=== PATIENT | female | born 1945 | race Caucasian/White ===

== ENCOUNTER → 2017-12-03 | Outpatient (CLI) | payer MEDICARE, OTHER ==
[~2017-12-03] MED LIST: ASPI81CH PO; Benicar40 MG PO; ESCI10 PO; GABA300 PO; Humalog100 UNIT/3 SQ; INSLI75/25 SC; INVOKANA300 MG PO; Indapamide2.5 MG PO; MEDR5 PO; METF500C PO; Nitrostat0.4 MG SL; OLME5TAB; ROSU5 PO
== END ==
LOC: LAB EV 10:10
DX: E11.65 Type 2 diabetes mellitus with hyperglycemia (principal)
CPT/HCPCS: 82043

== ENCOUNTER 2018-06-11 12:33 | Day surgery (SDC) | payer MEDICARE, OTHER ==
[~2018-06-11] VITALS: Ht 157.5 cm; Wt 118.3 kg
[~2018-06-11 12:33] MED LIST changes: -GABA300 PO; -METF500C PO
[2018-06-11] MEDS ORDERED: METF500C PO (13:12)
[2018-06-11] MEDS ORDERED: GABA300 PO (13:13)
== END 2018-06-11 14:25 | disposition home or self-care (01) ==
LOC: ORSCSDS 12:33
PROVIDERS: Anesthesiology
PROC: 3E0R33Z Introduction of Anti-inflammatory into Spinal Canal, Percutaneous Approach (ICD-10-PCS; principal; 2018-06-11 13:45)
DX: M51.16 Intervertebral disc disorders with radiculopathy, lumbar region (principal); E11.9 Type 2 diabetes mellitus without complications; I10 Essential (primary) hypertension; E78.00 Pure hypercholesterolemia, unspecified; G47.33 Obstructive sleep apnea (adult) (pediatric); Z95.0 Presence of cardiac pacemaker; E66.01 Morbid (severe) obesity due to excess calories; Z68.42 Body mass index [BMI] 45.0-49.9, adult; Z79.82 Long term (current) use of aspirin; Z79.4 Long term (current) use of insulin; Z79.899 Other long term (current) drug therapy
CPT/HCPCS: 82947; J1040; J2001

== ENCOUNTER 2018-10-29 09:30 | Day surgery (SDC) | payer MEDICARE, OTHER ==
[~2018-10-29] VITALS: Ht 157.5 cm; Wt 117.9 kg
[~2018-10-29 09:30] MED LIST changes: +GABA300 PO; +METF500C PO
--- NOTE | 2018-10-29 10:22 | NUR ---
10/29/18 1022 Margarita Marquez PT IS RECLINING IN THE CHAIR, STATES WHEN SHE IS LIKE THIS SHE DOESN'T HAVE ANY PAIN. WHEN SHE IS UP AND WALKING IT IS A DULL ACHE AND WHEN SHE IS USING THE STAIRS IT IS A SHARP,JARRING PAIN.
[2018-10-29] MEDS ORDERED: ROSU10TA PO (13:05)
[2018-10-29] MEDS ORDERED: ESCI20 PO (13:05)
[2018-10-29] MEDS ORDERED: Indapamide1.25 MG PO (13:06)
[2018-10-29] MEDS ORDERED: INSULANPEN SC (13:07)
[2018-10-29] MEDS ORDERED: Humalog Mi100 UNIT/4 SC (13:09)
== END 2018-10-29 11:05 | disposition home or self-care (01) ==
LOC: ORSCSDS 09:30
PROVIDERS: Anesthesiology
PROC: 3E0R33Z Introduction of Anti-inflammatory into Spinal Canal, Percutaneous Approach (ICD-10-PCS; principal; 2018-10-29 10:45)
DX: M51.16 Intervertebral disc disorders with radiculopathy, lumbar region (principal); M48.061 Spinal stenosis, lumbar region without neurogenic claudication; E11.9 Type 2 diabetes mellitus without complications; I10 Essential (primary) hypertension; E78.00 Pure hypercholesterolemia, unspecified; E66.01 Morbid (severe) obesity due to excess calories; Z68.42 Body mass index [BMI] 45.0-49.9, adult; Z79.82 Long term (current) use of aspirin; Z79.84 Long term (current) use of oral hypoglycemic drugs; Z79.4 Long term (current) use of insulin; Z79.899 Other long term (current) drug therapy
CPT/HCPCS: J1040

== ENCOUNTER 2018-11-07 10:49 | Day surgery (SDC) | payer MEDICARE, OTHER ==
[~2018-11-07] VITALS: Ht 157.5 cm; Wt 114.3 kg
[~2018-11-07 10:49] MED LIST changes: +ESCI20 PO; +Humalog Mi100 UNIT/4 SC; +INSULANPEN SC; +Indapamide1.25 MG PO; +ROSU10TA PO
[2018-11-07] MEDS ORDERED: IRBE75 (11:51)
--- NOTE | 2018-11-07 11:53 | NUR ---
11/07/18 1153 Iona Maher FIRST IV ATTEMPT IN RIGHT HAND AND SECOND ATTEMPT IN RIGHT AC WERE UNSUCCESSFUL. BOTH BY ORSC.RCL THIRD ATTEMPT IN RIGHT AC BY ORSC.KLS WAS SUCCESSFUL AND TOLERATED WELL.
== END 2018-11-07 14:56 | disposition home or self-care (01) ==
LOC: ORSCSDS 10:49
PROVIDERS: Student in an Organized Health Care Education/Training Program
PROC: 0DBK8ZX Excision of Ascending Colon, Via Natural or Artificial Opening Endoscopic, Diagnostic (ICD-10-PCS; principal; 2018-11-07 12:00)
DX: Z12.11 Encounter for screening for malignant neoplasm of colon (principal); D12.2 Benign neoplasm of ascending colon; E78.5 Hyperlipidemia, unspecified; E11.9 Type 2 diabetes mellitus without complications; I25.10 Atherosclerotic heart disease of native coronary artery without angina pectoris; G47.33 Obstructive sleep apnea (adult) (pediatric); E66.01 Morbid (severe) obesity due to excess calories; I10 Essential (primary) hypertension; Z88.5 Allergy status to narcotic agent; Z88.8 Allergy status to other drugs, medicaments and biological substances; N28.9 Disorder of kidney and ureter, unspecified; F32.9 Major depressive disorder, single episode, unspecified; Z68.42 Body mass index [BMI] 45.0-49.9, adult; Z79.899 Other long term (current) drug therapy; Z79.4 Long term (current) use of insulin; Z79.82 Long term (current) use of aspirin
CPT/HCPCS: 82947; 88305; J7120

== ENCOUNTER 2022-03-03 06:22 | Day surgery (SDC) | payer MEDICARE, OTHER ==
[~2022-03-03] VITALS: Ht 160 cm; Wt 121.0 kg
[~2022-03-03 06:22] MED LIST changes: +FURO20 PO; +IRBE75; +METO25ER PO; +TELM40 PO; +TOUJEO MAX300 UNIT/2 SC; +TRULICITY4.5 MG/0.5 SC
[2022-03-03] MEDS ORDERED: TELM40 PO (08:00)
--- NOTE | 2022-03-03 11:20 | NUR ---
PATIENT RETURNED FROM THE CATHLAB S/P GENERATOR CHANGE OUT FOR PPM. PATIENT AWAKE. NO PAIN. PATIENT PLACED ON THE MONIOR AND SBAR RECEIVED FROM EDILMA SEXTON. VVS. GLUCOSE CHECKED. AND PATIENT TAKING HER OWN HOME MEDS. OK'D BY MD. TAPIA SERVED BREAKFAST TRAY.
--- NOTE | 2022-03-03 12:48 | NUR ---
[facility] STARTED AND PATIENT CALLED FOR HER RIDE TO MEET HER IN 30 MINUTES AT THE [place] ENTRANCE. STARTED TO REVIEWED DISCHARGE INSTRUCTIONS WITH THE PATIENT. SHE HAS A FOLLOW UP APPOINTMENT FOR A WOUND CHECK AND A PACEMAKER CLINIC APPOINTMENT. ALL BELONGINGS AT THE BEDSIDE.
--- NOTE | 2022-03-03 13:04 | NUR ---
PATIENT PIV REMOVED, CATH TIP INTACT AND PRESSURE DRESSING APPLIED. PATIENT UP OOB, OFF THE MONITOR. PATEINT DRESSING SELF WITH LIMITED ASSISTANCE. ALL BELONINGS GATHERED AND PAITENT TAKEN VIA WHEELCHAIR TO THE [place] ENTRANCE TO MEET RIDE.
== END 2022-03-03 13:39 | disposition home or self-care (01) ==
LOC: MHTC 06:22
DX: Z45.010 Encounter for checking and testing of cardiac pacemaker pulse generator [battery] (principal); I49.5 Sick sinus syndrome; I25.10 Atherosclerotic heart disease of native coronary artery without angina pectoris; E78.5 Hyperlipidemia, unspecified; G47.33 Obstructive sleep apnea (adult) (pediatric); I12.9 Hypertensive chronic kidney disease with stage 1 through stage 4 chronic kidney disease, or unspecified chronic kidney disease; E11.22 Type 2 diabetes mellitus with diabetic chronic kidney disease; N18.9 Chronic kidney disease, unspecified; F32.A Depression, unspecified; G89.29 Other chronic pain; M54.50 Low back pain, unspecified; M48.00 Spinal stenosis, site unspecified; Z95.5 Presence of coronary angioplasty implant and graft; Z79.899 Other long term (current) drug therapy; E66.9 Obesity, unspecified; Z68.42 Body mass index [BMI] 45.0-49.9, adult
CPT/HCPCS: 33228; 82947; 99152; 99153; C1781; C1785; J0690; J1644; J2250; J3010; J7030; J7040

== ENCOUNTER 2022-07-14 09:59 | Emergency (ER) | payer MEDICARE, OTHER ==
[~2022-07-14] VITALS: Ht 160 cm; Wt 120.7 kg
[2022-07-14] MEDS ORDERED: ALBU90OI INH (13:28)
[2022-07-14] MEDS ORDERED: DOXY100 PO (13:28)
== END 2022-07-14 13:55 | disposition home or self-care (01) ==
LOC: ER 09:59
DX: R05.9 Cough, unspecified (principal); R09.89 Other specified symptoms and signs involving the circulatory and respiratory systems; I10 Essential (primary) hypertension; I25.10 Atherosclerotic heart disease of native coronary artery without angina pectoris; E11.9 Type 2 diabetes mellitus without complications; Z95.0 Presence of cardiac pacemaker; Z95.5 Presence of coronary angioplasty implant and graft; Z79.82 Long term (current) use of aspirin
CPT/HCPCS: 71046; 93005; 93010; 99283-25

== ENCOUNTER → 2022-07-31 | Outpatient (CLI) | payer MEDICARE, OTHER ==
[~2022-07-31] MED LIST changes: +ALBU90OI INH; +DOXY100 PO
== END ==
LOC: LAB SHORT 12:58 → LAB 12:58
DX: R30.0 Dysuria (principal)
CPT/HCPCS: 87086

== ENCOUNTER → 2023-05-22 | Outpatient (CLI) | payer MEDICARE, OTHER ==
[2023-05-23 14:26] LABS: Candida species (DNA Probe) Negative (NEGATIVE); G. vaginalis (DNA Probe) Positive (NEGATIVE); T. vaginalis (DNA Probe) Negative (NEGATIVE)
== END | disposition home or self-care (01) ==
LOC: LAB SHORT 17:05 → LAB 17:05
PROVIDERS: Family Medicine
DX: R30.0 Dysuria (principal)
CPT/HCPCS: 87086; 87480; 87510; 87660

== ENCOUNTER → 2023-06-20 | Outpatient (CLI) | payer MEDICARE, OTHER ==
[2023-06-21 10:56] LABS: Candida species (DNA Probe) Positive (NEGATIVE); G. vaginalis (DNA Probe) Negative (NEGATIVE); T. vaginalis (DNA Probe) Negative (NEGATIVE)
== END | disposition home or self-care (01) ==
LOC: LAB SHORT 17:40 → LAB 17:40
PROVIDERS: Physician Assistant
DX: L29.3 Anogenital pruritus, unspecified (principal); R82.79 Other abnormal findings on microbiological examination of urine
CPT/HCPCS: 87086; 87480; 87510; 87660

== ENCOUNTER → 2023-08-17 | Outpatient (CLI) | payer MEDICARE, OTHER ==
[2023-08-18 11:51] LABS: Candida species (DNA Probe) Positive (NEGATIVE); G. vaginalis (DNA Probe) Positive (NEGATIVE); T. vaginalis (DNA Probe) Negative (NEGATIVE)
== END | disposition home or self-care (01) ==
LOC: LAB 14:03 → LAB SHORT 14:03
PROVIDERS: Physician Assistant
DX: B37.2 Candidiasis of skin and nail (principal); R30.0 Dysuria
CPT/HCPCS: 87086; 87480; 87510; 87660

== ENCOUNTER → 2023-09-27 | Outpatient (CLI) | payer MEDICARE, OTHER ==
[2023-09-28 11:55] LABS: Candida species (DNA Probe) Positive (NEGATIVE); G. vaginalis (DNA Probe) Negative (NEGATIVE); T. vaginalis (DNA Probe) Negative (NEGATIVE)
[2023-09-29 20:39] LABS: APTIMA MEDIA TYPE Unisex Swab; C. TRACHOMATIS BY TMA Negative (Negative); N. GONORRHOEAE BY TMA Negative (Negative); SPECIMEN SOURCE Not Provided
== END ==
LOC: LAB SHORT 17:35 → LAB 17:35
PROVIDERS: Internal Medicine
DX: N76.0 Acute vaginitis (principal)
CPT/HCPCS: 87070; 87086; 87205; 87480; 87491; 87510; 87591; 87660

== ENCOUNTER 2024-01-09 21:04 | Inpatient (IN) | payer MEDICARE, OTHER ==
[~2024-01-09] VITALS: Ht 162.6 cm; Wt 113.3 kg
[2024-01-09 21:57] LABS: BASOPHILS ABSOLUTE AUTO 0.07 K/mm3 (0.00-0.23); BASOPHILS PERCENT AUTO 1 % (0-2); EOSINOPHILS ABSOLUTE AUTO 0.53 K/mm3 (0.00-0.68); EOSINOPHILS PERCENT AUTO 4 % (0-6); Hematocrit 38.3 % (33.0-51.0); Hemoglobin 12.5 g/dL (11.5-16.0); IMMATURE GRAN ABSOLUTE AUTO 0.05 K/mm3 (0.00-0.10); IMMATURE GRAN PERCENT AUTO 0 % (0-1); LYMPHOCYTES ABSOLUTE AUTO 3.07 K/mm3 (0.84-5.20); LYMPHOCYTES PERCENT AUTO 25 % (21-46); MONOCYTES ABSOLUTE AUTO 0.65 K/mm3 (0.16-1.47); MONOCYTES PERCENT AUTO 5 % (4-13); Mean Corpuscular HGB Conc 32.6 g/dL (31.5-36.5); Mean Corpuscular Volume 89 fL (80-100); Mean Platelet Volume 10.2 fL (9.1-12.4); NEUTROPHILS ABSOLUTE AUTO 7.94 K/mm3 (1.96-9.15); NEUTROPHILS PERCENT AUTO 65 % (41-73); Platelet Count 265 K/mm3 (150-400); RDW Coefficient Variation 13.8 % (11.7-14.2); Red Blood Cell Count 4.31 M/mm3 (3.80-5.20); White Blood Cell Count 12.31 K/mm3 (4.00-11.30)
[2024-01-09 22:16] LABS: Albumin/Globulin Ratio 0.8 (0.8-1.8); Bilirubin, Total 0.4 mg/dL (0.1-1.0); Bun/Creatinine Ratio 34.9 (12.0-20.0); Calcium, Blood 9.7 mg/dL (8.5-10.1); Creatinine, Blood 1.06 mg/dL (0.40-1.00); Globulin, Blood 3.8 g/dL (2.2-4.0); Potassium, Blood 4.3 mmol/L (3.5-5.5); Total Protein, Blood 6.8 g/dL (6.4-8.2)
[2024-01-09 23:49] LABS: Source, Urine Clean Catch
[2024-01-09 23:54] LABS: Appearance, Urine Hazy (Clear); Bilirubin, Urine Neg (Neg); Blood, Urine 5+ (Neg); Color, Urine Yellow (P-Yellow); Glucose Qualitative, Urine 4+ (Neg); Ketones, Urine Neg (Neg); Leukocyte Esterase, Urine 2+ (Neg); Nitrite, Urine Neg (Neg); Protein, Urine 2+ (Neg); Urobilinogen, Urine NORM (Normal)
[2024-01-09] MEDS ORDERED: NS 1,000 ML IV SCH (23:55)
[2024-01-10 00:41] LABS: Bacteria Mod /hpf; Squamous Epithelial Cells Mod /hpf (Few); White Blood Cells, Urine 25-50 /hpf (0-5)
[2024-01-10] MEDS ORDERED: CefTRIAXone Sodium 2,000 MG in NS 100 ML IV ONE (04:55)
[2024-01-10] MEDS ORDERED: Ondansetron HCl 2 MG / ML 2ML Vial IV PRN (05:10)
[2024-01-10] MEDS ORDERED: NS 1,000 ML IV SCH (05:15)
[2024-01-10] MEDS ORDERED: Insulin Glargine-Yfgn 100 Unit/mL 3 ML SYR SC SCH ×2 (06:00→22:00)
[2024-01-10] MEDS ORDERED: Azithromycin 500 MG in NS 250 ML IV SCH (06:00)
[2024-01-10 06:17] VITALS: BP 199/58
[2024-01-10 06:18] LABS: Influenza A, PCR NEGATIVE (NEGATIVE); Influenza B, PCR NEGATIVE (NEGATIVE); Resp Syncytial Virus, PCR NEGATIVE (NEGATIVE); SARS-Cov-2 (COVID-19) PCR, MMC NEGATIVE (NEGATIVE)
[2024-01-10] MEDS ORDERED: HydrALAZINE HCl 20 MG / ML 1ML Vial IV ONE (06:45)
[2024-01-10] MEDS ORDERED: Insulin Glargine-Yfgn 100 Unit/mL 3 ML SYR SC ONE (07:00)
[2024-01-10] MEDS ORDERED: Insulin Human Lispro 100 Units/ML 3ML Syringe SC SCH ×2 (07:30)
[2024-01-10 07:35] LABS: International Normalized Ratio 0.99; Prothrombin Time Results 10.6 Sec (9.7-11.5)
[2024-01-10 07:42] VITALS: BP 188/67
[2024-01-10] MEDS ORDERED: HydroCHLOROthiazide 25 mg Tab PO SCH (08:00)
[2024-01-10] MEDS ORDERED: Losartan Potassium 50 MG Tab PO SCH (08:00)
[2024-01-10] MEDS ORDERED: Citalopram Hydrobromide 20 MG Tab PO SCH (09:00)
[2024-01-10] MEDS ORDERED: MedroxyPROGESTERone Acetate 10 MG Tab PO SCH (09:00)
[2024-01-10] MEDS ORDERED: Metoprolol Succinate 25 MG TABCR PO SCH (09:00)
[2024-01-10] MEDS ORDERED: Rosuvastatin Calcium 10 MG Tab PO SCH (09:00)
[2024-01-10] MEDS ORDERED: Aspirin 81 MG Chew PO SCH (09:00)
[2024-01-10] MEDS ORDERED: Enoxaparin 40 MG/0.4 ML SYR SC SCH (09:00)
[2024-01-10] MEDS ORDERED: Acetaminophen 325 MG TABLET PO PRN (10:20)
[2024-01-10] MEDS ORDERED: CHLO25B PO (10:31)
[2024-01-10] MEDS ORDERED: HUMALOG KW100 UNIT/1 SC (10:33)
[2024-01-10] MEDS ORDERED: [UNRECOGNIZED DRUG - REMARK] SC (10:35)
[2024-01-10] MEDS ORDERED: BIMATOPROST BOTHEYES (10:38)
[2024-01-10 17:21] VITALS: BP 186/64
[2024-01-10] MEDS ORDERED: HydrALAZINE HCl 25 MG Tab PO PRN (17:50)
--- NOTE | 2024-01-10 18:44 | NUR ---
PT HYPERTENSIVE. ANABELL KULKARNI NOTIFIED. PER CAYLA, ORDER 25 MG PO HYDRALAZINE 8HR PRN FOR SBP >180
--- NOTE | 2024-01-10 19:13 | NUR ---
PT IS ALERT AND ORIENTED X2-3. ORIENTED X4 AT BASELINE. CALLED AROUND 6PM, PT HAS A HISTORY OF ABSESSES IN THE [place] AREA AND WOULD LIKE FOR US TO LOOK. THIS RN DID NOT SEE ANY ABBSES BUT REPORTED TO NOC RN TO LOOK WELL. PT IS CALM AND COOPERATIVE. SBA WITH FWW. ABLE TO MAKE NEEDS KNOWN.
[2024-01-10 19:40] VITALS: BP 147/53
[2024-01-10] MEDS ORDERED: Latanoprost 0.005% Opth Soln 2.5 ML BOTHEYES SCH (21:00)
[2024-01-11 03:39] VITALS: BP 183/50
--- NOTE | 2024-01-11 05:44 | NUR ---
Shift Summary Pt had productive cough t/o the night. Offered to call hospitalist and request PRN cough medicine but pt declined and said she would be fine. Pt does say she had a taye area abcess 10 months ago, currently no abcess on assessment. Pt hypertensive this AM with systolic of 182, gave PRN PO Hydralazine. She is 1 SBA to the bathroom, calls appropriatly. Blood glucose was elevated last night at 256, gave scheduled 10 units of glargine.
[2024-01-11 07:30] VITALS: BP 169/62
[2024-01-11] MEDS ORDERED: Insulin Glargine-Yfgn 100 Unit/mL 3 ML SYR SC SCH (09:00)
[2024-01-11] MEDS ORDERED: CefTRIAXone Sodium 1,000 MG in NS 100 ML IV SCH (09:00)
[2024-01-11 09:03] LABS: BASOPHILS ABSOLUTE AUTO 0.07 K/mm3 (0.00-0.23); BASOPHILS PERCENT AUTO 1 % (0-2); EOSINOPHILS ABSOLUTE AUTO 0.52 K/mm3 (0.00-0.68); EOSINOPHILS PERCENT AUTO 5 % (0-6); Hemoglobin 12.9 g/dL (11.5-16.0); IMMATURE GRAN ABSOLUTE AUTO 0.06 K/mm3 (0.00-0.10); IMMATURE GRAN PERCENT AUTO 1 % (0-1); LYMPHOCYTES ABSOLUTE AUTO 2.16 K/mm3 (0.84-5.20); LYMPHOCYTES PERCENT AUTO 21 % (21-46); MONOCYTES ABSOLUTE AUTO 0.61 K/mm3 (0.16-1.47); MONOCYTES PERCENT AUTO 6 % (4-13); Mean Corpuscular HGB 28.8 pg (26.0-34.0); Mean Corpuscular HGB Conc 32.3 g/dL (31.5-36.5); Mean Corpuscular Volume 89 fL (80-100); Mean Platelet Volume 10.5 fL (9.1-12.4); NEUTROPHILS ABSOLUTE AUTO 6.77 K/mm3 (1.96-9.15); NEUTROPHILS PERCENT AUTO 66 % (41-73); Platelet Count 284 K/mm3 (150-400); RDW Coefficient Variation 14.1 % (11.7-14.2); RDW Standard Deviation 45.4 fL (35.1-46.3); Red Blood Cell Count 4.48 M/mm3 (3.80-5.20); White Blood Cell Count 10.19 K/mm3 (4.00-11.30)
[2024-01-11 09:31] LABS: Albumin, Blood 3.1 g/dL (3.4-5.0); Albumin/Globulin Ratio 0.8 (0.8-1.8); Bilirubin, Total 0.7 mg/dL (0.1-1.0); Calcium, Blood 9.3 mg/dL (8.5-10.1); Creatinine, Blood 0.74 mg/dL (0.40-1.00); Total Protein, Blood 7.1 g/dL (6.4-8.2)
--- NOTE | 2024-01-11 16:09 | NUR ---
PT IS ALERT AND ORIENTED X4, SLOW TO RESPOND BUT DOING MUCH BETTER THIS SHIFT. ABLE TO MAKE NEEDS KNOWN. PT WORKED WITH PT/OT. PLAN FOR DISCHARGE WITH HOME HEALTH. SBA WITH FWW. CALM AND APPROPRIATE. BED ALARM ON WITH CALL LIGHT IN REACH
[2024-01-11 20:29] VITALS: BP 170/45
[2024-01-12 04:30] VITALS: BP 163/52
[2024-01-12 07:22] VITALS: BP 170/47
--- NOTE | 2024-01-12 07:28 | NUR ---
Shift Summary Pt AOX4, steady on her feet with FWW. Rcving IV ABX. Slept well t/o the night. One episode of incontinence. No c/o of pain or nausea.
[2024-01-12] MEDS ORDERED: Insulin Glargine-Yfgn 100 Unit/mL 3 ML SYR SC SCH ×2 (09:00→21:00)
[2024-01-12 16:25] VITALS: BP 187/55
[2024-01-12] MEDS ORDERED: Insulin Human Lispro 100 Units/ML 3ML Syringe SC SCH (17:30)
--- NOTE | 2024-01-12 18:15 | NUR ---
SHIFT SUMMARY BLOOD SUGARS CONTINUE TO BE 300'S DESPITE INSULIN ADMIN PER NOV. DOC ORDERED INCREASE TO GLARGINE DOSE AND ADDED 15 UNITS AC ALONG WITH HIGH SLIDING SCALE HUMALOG. ABLE TO AMBULATE TO BATHROOM WELL. NO C/O PAIN. A/O X 4. ABLE TO MAKE NEEDS KNOWN. CALL LIGHT IN REACH. CARES ONGOING
[2024-01-12 19:49] VITALS: BP 174/41
[2024-01-13 04:22] VITALS: BP 150/46
--- NOTE | 2024-01-13 05:54 | NUR ---
SHIFT SUMMARY PT A&OX4 AND COOPERATIVE OF CARE. BG WAS 356 AT HS. GLARGINE GIVEN PER EMAR. NO C/O PAIN. PT HAD A COUPLE EPISODES OF INCONTINENCE BUT WAS USUALLY ABLE TO MAKE IT TO THE BATHROOM WITH SBA AND FWW. PT C/O COUGH THAT GETS WORSE DURING THE NIGHT. PT GIVEN GAUIFENESIN PER ORDER. PT DOES NOT USE CALL LIGHT BUT WILL CALL OUT FOR HELP. BED ALARM ON. BED IN LOWEST POSITION AND CALL LIGHT IN REACH.
[2024-01-13 07:39] VITALS: BP 183/51
--- NOTE | 2024-01-13 15:25 | NUR ---
SHIFT SUMMARY PT AWAKE AT START OF SHIFT. A&O, PLEASANT AND CO-OP WITH CARE. UP TO BTHRM USING FWW AND SBA NEEDED. PER REPORT, PT IS CONTINENT AND INCONTINENT AT TIMES. INSULIN ADJUSTED LAST NIGHT PER REPORT; CBG'S IMPROVING THRU OUT THE DAY. REPOSITIONED OFF BUTTOCKS THRU OUT SHIFT. PT ENCOURAGED TO GET UP TO CHAIR FOR MEALS. DECLINED TO PRESENT. VISITORS TO AT THIS TIME. PT REQUESTING COUGH MED; GIVEN PER EMAR. BP ELEVATED AT START OF SHIFT; BP MEDS GIVEN PER EMAR. DENIES FURTHER NEEDS AT THIS TIME. CALL LT IN REACH.
[2024-01-13 15:44] VITALS: BP 180/59
[2024-01-13 20:35] VITALS: BP 182/60
[2024-01-14 04:00] VITALS: BP 164/61
--- NOTE | 2024-01-14 06:01 | NUR ---
SHIFT SUMMARY: Pt is admitted for sepsis and is a full code. Is alert and able to make needs known. Denies pain or discomfort when asked. ADLs have been 1p SBA. power glide to upper left arm is patent with dressing that is CDI. efrain reports a-paced at 62.
[2024-01-14 07:26] VITALS: BP 160/55
--- NOTE | 2024-01-14 10:51 | NUR ---
STUDENT RN AM ASSESSMENT I WAS PRESENT DURING AND AGREE WITH THE STUDENT EDILMA GUSMAN'S AM SHIFT ASSESSMENT, AND DOCUMENTATION ON THIS PATIENT TODAY
[2024-01-14] MEDS ORDERED: ASPI81CH PO (12:15)
[2024-01-14] MEDS ORDERED: MOUNJARO7.5 MG/0.5 SC (12:22)
--- NOTE | 2024-01-14 16:28 | NUR ---
PT DISCHARGED TO HOME. CANDICE POWERGLIDE REMOVED. PT WAS EDUCATED ON DISCHARGE INSTURCTIONS SURROUNDING CHANGES TO INSULIN DOSAGES AND TO MAKE A FOLLOW UP APPOINTMENT WITH PCP FOR A POST-HOSPITAL REVIEW AT NEXT AVAILABLE DATE. ALL BELONGINGS WERE RETURNED TO THE PT.
[2024-01-18] MEDS ORDERED: CEPH500 PO ×2 (01:55→12:37)
== END 2024-01-14 16:12 | disposition home health service (06) | DRG 871 ==
LOC: ER 21:04 → MEDS 01-10 05:10
PROVIDERS: Nurse Practitioner; ADMIT Internal Medicine
DX: A41.9 Sepsis, unspecified organism (principal); G93.41 Metabolic encephalopathy; J18.9 Pneumonia, unspecified organism; E87.20 Acidosis, unspecified; N17.9 Acute kidney failure, unspecified; Z68.43 Body mass index [BMI] 50.0-59.9, adult; F05 Delirium due to known physiological condition; N30.01 Acute cystitis with hematuria; E11.65 Type 2 diabetes mellitus with hyperglycemia; H35.30 Unspecified macular degeneration; E66.01 Morbid (severe) obesity due to excess calories; I12.9 Hypertensive chronic kidney disease with stage 1 through stage 4 chronic kidney disease, or unspecified chronic kidney disease; E11.22 Type 2 diabetes mellitus with diabetic chronic kidney disease; N18.30 Chronic kidney disease, stage 3 unspecified; R65.20 Severe sepsis without septic shock; I25.10 Atherosclerotic heart disease of native coronary artery without angina pectoris; E78.00 Pure hypercholesterolemia, unspecified; Z79.82 Long term (current) use of aspirin; Z79.4 Long term (current) use of insulin; Z79.2 Long term (current) use of antibiotics; Z79.899 Other long term (current) drug therapy; E86.0 Dehydration; Z95.0 Presence of cardiac pacemaker; Z90.89 Acquired absence of other organs; Z90.49 Acquired absence of other specified parts of digestive tract; Z95.5 Presence of coronary angioplasty implant and graft; Z98.890 Other specified postprocedural states
CPT/HCPCS: 0241U; 36415; 70450; 71046; 80053; 81001; 82947; 83605; 83880; 85025; 85610; 87040; 87070; 87086; 87205; 93005; 93010; 96361; 96374; 96375; 97116; 97161; 97165; 97530; 97535; 99285-25; A9270; C1751; J0360; J0456; J0696; J1650; J1815; J7030; J7050

== ENCOUNTER 2024-01-19 06:24 | Emergency (ER) | payer MEDICARE, OTHER ==
[~2024-01-19] VITALS: Ht 160 cm; Wt 112.0 kg
[~2024-01-19 06:24] MED LIST changes: +BIMATOPROST BOTHEYES; +CEPH500 PO; +CHLO25B PO; +HUMALOG KW100 UNIT/1 SC; +MOUNJARO7.5 MG/0.5 SC; +[UNRECOGNIZED DRUG - REMARK] SC
[2024-01-19 07:11] LABS: BASOPHILS ABSOLUTE AUTO 0.08 K/mm3 (0.00-0.23); BASOPHILS PERCENT AUTO 1 % (0-2); EOSINOPHILS ABSOLUTE AUTO 0.08 K/mm3 (0.00-0.68); EOSINOPHILS PERCENT AUTO 1 % (0-6); Hematocrit 37.5 % (33.0-51.0); Hemoglobin 12.6 g/dL (11.5-16.0); IMMATURE GRAN ABSOLUTE AUTO 0.05 K/mm3 (0.00-0.10); IMMATURE GRAN PERCENT AUTO 1 % (0-1); LYMPHOCYTES ABSOLUTE AUTO 1.56 K/mm3 (0.84-5.20); LYMPHOCYTES PERCENT AUTO 15 % (21-46); MONOCYTES ABSOLUTE AUTO 0.75 K/mm3 (0.16-1.47); MONOCYTES PERCENT AUTO 7 % (4-13); Mean Corpuscular HGB 29.9 pg (26.0-34.0); Mean Corpuscular HGB Conc 33.6 g/dL (31.5-36.5); Mean Corpuscular Volume 89 fL (80-100); NEUTROPHILS ABSOLUTE AUTO 8.22 K/mm3 (1.96-9.15); NEUTROPHILS PERCENT AUTO 77 % (41-73); RDW Coefficient Variation 14.6 % (11.7-14.2); RDW Standard Deviation 47.2 fL (35.1-46.3); Red Blood Cell Count 4.21 M/mm3 (3.80-5.20); White Blood Cell Count 10.74 K/mm3 (4.00-11.30)
[2024-01-19 07:29] LABS: Albumin, Blood 2.8 g/dL (3.4-5.0); Albumin/Globulin Ratio 0.7 (0.8-1.8); Bilirubin, Direct 0.1 mg/dL (0.0-0.3); Bilirubin, Indirect 0.9 mg/dL (0.1-0.7); Bun/Creatinine Ratio 30.4 (12.0-20.0); Calcium, Blood 8.6 mg/dL (8.5-10.1); Creatinine, Blood 0.82 mg/dL (0.40-1.00); Globulin, Blood 3.8 g/dL (2.2-4.0); Magnesium, Blood 2.3 mg/dL (1.6-2.4); Potassium, Blood 4.6 mmol/L (3.5-5.5); Total Protein, Blood 6.6 g/dL (6.4-8.2)
[2024-01-19 08:19] LABS: Platelet Count 302 K/mm3 (150-400)
[2024-01-19] MEDS ORDERED: NS 1,000 ML IV SCH (08:45)
[2024-01-19] MEDS ORDERED: Ketorolac Tromethamine 30mg Vial IV ONE (08:50)
[2024-01-19 10:45] VITALS: BP 175/55
== END 2024-01-19 12:19 | disposition home or self-care (01) ==
LOC: ER 06:24
PROVIDERS: Student in an Organized Health Care Education/Training Program
DX: R33.9 Retention of urine, unspecified (principal); Z87.440 Personal history of urinary (tract) infections; I12.0 Hypertensive chronic kidney disease with stage 5 chronic kidney disease or end stage renal disease; N18.30 Chronic kidney disease, stage 3 unspecified; E11.22 Type 2 diabetes mellitus with diabetic chronic kidney disease; E78.00 Pure hypercholesterolemia, unspecified; Z88.1 Allergy status to other antibiotic agents; Z88.5 Allergy status to narcotic agent; Z88.8 Allergy status to other drugs, medicaments and biological substances; Z79.82 Long term (current) use of aspirin; Z79.4 Long term (current) use of insulin; Z79.899 Other long term (current) drug therapy
CPT/HCPCS: 36415; 51702; 51798; 74177; 80048; 80076; 83690; 83735; 85025; 99284-25; J1885; J7030; Q9967

== ENCOUNTER 2024-05-23 09:42 | Inpatient (IN) | payer MEDICARE, OTHER ==
[~2024-05-23] VITALS: Ht 152.4 cm; Wt 126.0 kg
[2024-05-23] VITALS (22 sets, daily range): BP systolic 102–174; BP diastolic 42–105
[2024-05-23] MEDS ORDERED: NS 1,000 ML IV SCH ×3 (10:05→14:00)
[2024-05-23 10:16] LABS: BASOPHILS ABSOLUTE AUTO 0.02 K/mm3 (0.00-0.23); BASOPHILS PERCENT AUTO 0 % (0-2); EOSINOPHILS PERCENT AUTO 0 % (0-6); Hematocrit 37.3 % (33.0-51.0); Hemoglobin 12.3 g/dL (11.5-16.0); IMMATURE GRAN ABSOLUTE AUTO 0.07 K/mm3 (0.00-0.10); IMMATURE GRAN PERCENT AUTO 1 % (0-1); LYMPHOCYTES ABSOLUTE AUTO 1.13 K/mm3 (0.84-5.20); LYMPHOCYTES PERCENT AUTO 11 % (21-46); MONOCYTES ABSOLUTE AUTO 0.39 K/mm3 (0.16-1.47); MONOCYTES PERCENT AUTO 4 % (4-13); Mean Corpuscular HGB 28.5 pg (26.0-34.0); Mean Corpuscular Volume 86 fL (80-100); Mean Platelet Volume 10.9 fL (9.1-12.4); NEUTROPHILS ABSOLUTE AUTO 8.83 K/mm3 (1.96-9.15); NEUTROPHILS PERCENT AUTO 85 % (41-73); Platelet Count 272 K/mm3 (150-400); RDW Coefficient Variation 13.8 % (11.7-14.2); RDW Standard Deviation 43.1 fL (35.1-46.3); Red Blood Cell Count 4.32 M/mm3 (3.80-5.20); White Blood Cell Count 10.44 K/mm3 (4.00-11.30)
[2024-05-23 10:38] LABS: Albumin, Blood 3.2 g/dL (3.4-5.0); Albumin/Globulin Ratio 0.9 (0.8-1.8); Bilirubin, Total 0.9 mg/dL (0.1-1.0); Bun/Creatinine Ratio 36.2 (12.0-20.0); Calcium, Blood 8.6 mg/dL (8.5-10.1); Creatinine, Blood 1.05 mg/dL (0.40-1.00); Globulin, Blood 3.7 g/dL (2.2-4.0); Potassium, Blood 4.7 mmol/L (3.5-5.5); Total Protein, Blood 6.9 g/dL (6.4-8.2)
[2024-05-23 10:46] LABS: Base Excess Venous -4.4 mmol/L; Bicarbonate Venous 20.8 mmol/L (24.0-30.0); PCO2 Venous 43.2 mmHg (38-42); pH Blood Venous 7.31 (7.34-7.37)
[2024-05-23 10:55] LABS: Source, Urine Clean Catch
[2024-05-23 11:01] LABS: Appearance, Urine Hazy (Clear); Bilirubin, Urine Neg (Neg); Blood, Urine 4+ (Neg); Color, Urine Yellow (P-Yellow); Glucose Qualitative, Urine 4+ (Neg); Ketones, Urine 3+ (Neg); Leukocyte Esterase, Urine 3+ (Neg); Nitrite, Urine Neg (Neg); Protein, Urine 2+ (Neg); Specific Gravity, Urine 1.015 (1.003-1.022); Urobilinogen, Urine NORM (Normal)
[2024-05-23 11:08] LABS: Bacteria Mod /hpf; Squamous Epithelial Cells Few /hpf (Few); White Blood Cells, Urine 50-100 /hpf (0-5); Yeast/Fungi Urine Few /hpf
[2024-05-23] MEDS ORDERED: CefTRIAXone Sodium 1,000 MG in NS 100 ML IV ONE ×2 (11:20→14:10)
[2024-05-23] MEDS ORDERED: Insulin Human Regular 100 UNIT in NS 100 ML IV SCH ×2 (11:35→12:20)
[2024-05-23] MEDS ORDERED: Ondansetron HCl 2 MG / ML 2ML Vial IV PRN (14:00)
[2024-05-23] MEDS ORDERED: Bisacodyl 10 MG Supp PR PRN (14:00)
[2024-05-23] MEDS ORDERED: Magnesium Hydroxide Conc 10 ML UDC PO PRN (14:00)
[2024-05-23] MEDS ORDERED: Temazepam 15 MG Cap PO PRN (14:00)
[2024-05-23] MEDS ORDERED: HydrALAZINE HCl 20 MG / ML 1ML Vial IV PRN (14:05)
[2024-05-23] MEDS ORDERED: Ondansetron 4 MG TAB PO PRN (14:05)
[2024-05-23 15:10] LABS: Beta-hydroxybutyrate 31.7 mg/dL (0.2-2.8)
[2024-05-23 15:11] LABS: Bun/Creatinine Ratio 37.5 (12.0-20.0); Calcium, Blood 8.8 mg/dL (8.5-10.1); Creatinine, Blood 0.96 mg/dL (0.40-1.00); Potassium, Blood 4.1 mmol/L (3.5-5.5)
[2024-05-23 15:49] LABS: Glucose, Blood 598 mg/dL (70-99)
--- NOTE | 2024-05-23 18:22 | NUR ---
"Spiritual Care Visit| Pt. request Pt. is awake in bed and welcomes my visit. Pt. is pleasant but unsettled by reoccuring illness. Facilitated a life review. Listen with empathy and a calming presence. COnsidered matters of thomas and belief. Prayed with Pt. Pt. verbalized gratitude for the spiritual care visit."
--- NOTE | 2024-05-23 18:42 | NUR ---
Summary. Pt rested in bed most of shift. Up to use commode with walker. Alert and oriented. Pt currently up in chair for dinner, insulin gtt discontinued at 1811. Pt transitioning to sliding scale coverage and long acting, see orders. No acute events this shift. See chart for further details.
--- NOTE | 2024-05-23 18:49 | NUR ---
Summary. Pt arrived to ICU at approximately 1345. Alert and oriented, able to ambulate with walker to commode and back to bed. Pt on insulin GTT at 6 units/hr, NS bolus followed by 200 ml/hr bolus. No acute events this afternoon, see chart for details.
--- NOTE | 2024-05-23 19:00 | NUR ---
ASSUMED CARE OF PATIENT AT 1900. REPORT RECEIVED FROM EDILMA LEWIS. PT AMBULATING BACK TO BED FROM TOILET AT TIME OF REPORT WITH ASSISTANCE IN GUIDING LINES/CORDS. CONTINOUS CARDIAC MONITORING REFLECTS PACED RHYTHM WITH HR OF 67, BP STABLE. ON RA WITH O2 SATURATION OF 97%. DENIES PAIN, CP, SOB, N/V. INSULIN INFUSING AT 6 U/HR, NS INFUSING AT 200 mL/HR. NO ACUTE NEEDS IDENTIFED AT THIS TIME. SEE SHIFT ASSESSMENT FOR FULL DETAILS.
[2024-05-23 19:05] LABS: Bun/Creatinine Ratio 34.4 (12.0-20.0); Calcium, Blood 8.2 mg/dL (8.5-10.1); Creatinine, Blood 0.96 mg/dL (0.40-1.00); Potassium, Blood 3.8 mmol/L (3.5-5.5)
[2024-05-23] MEDS ORDERED: Latanoprost 0.005% Opth Soln 2.5 ML BOTHEYES SCH (21:00)
[2024-05-23] MEDS ORDERED: Famotidine 20 MG Tab PO SCH (21:00)
[2024-05-23 22:20] LABS: Bun/Creatinine Ratio 33.6 (12.0-20.0); Calcium, Blood 8.2 mg/dL (8.5-10.1); Creatinine, Blood 1.1 mg/dL (0.40-1.00); Potassium, Blood 3.8 mmol/L (3.5-5.5)
[2024-05-24] VITALS (32 sets, daily range): BP systolic 99–182; BP diastolic 44–101
[2024-05-24 02:38] LABS: Bun/Creatinine Ratio 34.3 (12.0-20.0); Calcium, Blood 7.9 mg/dL (8.5-10.1); Creatinine, Blood 1.05 mg/dL (0.40-1.00); Potassium, Blood 3.6 mmol/L (3.5-5.5)
[2024-05-24] MEDS ORDERED: Potassium Chloride 20 MEQ TabCR PO ONE (02:55)
[2024-05-24] MEDS ORDERED: CALCIUM GLUC IN NACL, ISO-OSM 50 ML IV ONE (03:05)
--- NOTE | 2024-05-24 05:19 | NUR ---
SHIFT SUMMARY PT REMAINED ALERT AND ORIENTED X 4 T/O ENTIRETY OF SHIFT. ABLE TO FOLLOW COMMANDS, MAKE PURPOSEFUL MOVEMENTS, AND MAKE NEEDS KNOWN. AFEBRILE AND DENIES PAIN. CONTINOUS CARDIAC MONITORING IN PLACE SHOWING ATRIALLY PACED RHYTHM WITH HR IN 60'S. BP STABLE. ON RA WITH O2 SATURATIONS > 92%. UTILIZED CPAP DURING SLEEP. ONE LARGE BM THIS SHIFT. DENIES N/V. SKIN REMAINS INTACT. INSULIN INFUSING AT 7 U/HR, NS AT 200 mL/HR. CALCIUM AND POTASSIUM REPLACED THIS SHIFT. REPEAT BMP SCHEDULED FOR 0600. WILL CONTINUE TO MONITOR AND REPORT TO ONCOMING RN.
[2024-05-24 06:14] LABS: Bun/Creatinine Ratio 35.5 (12.0-20.0); Calcium, Blood 8.2 mg/dL (8.5-10.1); Creatinine, Blood 0.96 mg/dL (0.40-1.00); Potassium, Blood 3.8 mmol/L (3.5-5.5)
[2024-05-24] MEDS ORDERED: MedroxyPROGESTERone Acetate 10 MG Tab PO SCH (09:00)
[2024-05-24] MEDS ORDERED: Rosuvastatin Calcium 10 MG Tab PO SCH (09:00)
[2024-05-24] MEDS ORDERED: Enoxaparin 40 MG/0.4 ML SYR SC SCH (09:00)
[2024-05-24] MEDS ORDERED: CefTRIAXone Sodium 2,000 MG in NS 100 ML IV SCH (09:00)
[2024-05-24] MEDS ORDERED: Citalopram Hydrobromide 20 MG Tab PO SCH (09:00)
[2024-05-24] MEDS ORDERED: Aspirin 81 MG Chew PO SCH (09:00)
[2024-05-24] MEDS ORDERED: Metoprolol Succinate 25 MG TABCR PO SCH (09:00)
[2024-05-24] MEDS ORDERED: Losartan Potassium 50 MG Tab PO SCH (09:00)
[2024-05-24 10:04] LABS: Bun/Creatinine Ratio 32.7 (12.0-20.0); Calcium, Blood 8.2 mg/dL (8.5-10.1); Creatinine, Blood 1.01 mg/dL (0.40-1.00); Potassium, Blood 3.9 mmol/L (3.5-5.5)
[2024-05-24] MEDS ORDERED: Insulin Glargine-Yfgn 100 Unit/mL 3 ML SYR SC SCH ×2 (10:15→21:00)
[2024-05-24] MEDS ORDERED: Insulin Human Lispro 100 Units/ML 3ML Syringe SC SCH ×2 (11:30→21:00)
[2024-05-24] MEDS ORDERED: Insulin Glargine-Yfgn 100 Unit/mL 3 ML SYR SC ONE (13:10)
[2024-05-24 14:29] LABS: Bun/Creatinine Ratio 33.5 (12.0-20.0); Calcium, Blood 8.1 mg/dL (8.5-10.1); Creatinine, Blood 0.96 mg/dL (0.40-1.00); Potassium, Blood 4.4 mmol/L (3.5-5.5)
[2024-05-24] MEDS ORDERED: Insulin Human Lispro 100 Units/ML 3ML Syringe SC ONE ×2 (16:45→23:50)
--- NOTE | 2024-05-24 17:22 | NUR ---
Pt transferred upstairs at approximately 1700, report given to RN assuming care. Pt vitals stable at time of transport. All personal belongings sent upstairs with pt. Pt taken via wheelchair to room 336. See chart for further details.
--- NOTE | 2024-05-24 17:51 | NUR ---
SHIFT SUMMARY PT TRANSFERED FROM ICU 12 THIS SHIFT. PT IS A&OX4 AND ASSIST X1 WITH GAITBELT AND WALKER. PT ORINTATED TO ROOM. PT NOTED TO HAVE VISUAL IMPAIRMENT RE; MACULAR DEGENERATION AND STATES SHE HAS DIFFICULTY SEEING THINGS. PT CALLS APPROPERATLY FOR HELP.
--- NOTE | 2024-05-24 17:53 | NUR ---
CALL PLACED TO DR SELVIN SIDDIQUI TELE ORDER AWAITING LIBRARY MEDIA SPECIALIST BACK.
--- NOTE | 2024-05-24 18:03 | NUR ---
RECIEVED CALL BACK FROM DR MONTALVO TO DC TELE AND CONT PULSE OX.
[2024-05-24 19:26] LABS: Bun/Creatinine Ratio 39.3 (12.0-20.0); Calcium, Blood 8.2 mg/dL (8.5-10.1); Creatinine, Blood 0.82 mg/dL (0.40-1.00); Potassium, Blood 4.4 mmol/L (3.5-5.5)
--- NOTE | 2024-05-24 20:39 | NUR ---
HS BLOOD GLUCOSE 394, PT ASYMPTOMATIC. HOSPITALIST NOTIFIED AND ORDERS GIVEN TO RECHECK BLOOD GLUCOSE 2 HOURS AFTER GIVING SCHEDULED 30 UNITS GLARGINE AND 6 UNITS SHORT ACTING PER SLIDING SCALE.
--- NOTE | 2024-05-24 23:50 | NUR ---
PT BLOOD GLUCOSE 338 UPON RECHECK 2 HOURS AFTER HS INSULIN GIVEN. HOSPITALIST NOTIFIEND AND ORDER FOR ONE TIME DOSE 5 UNITS FAST ACTING INSULING GIVEN. WILL RECHECK IN 2 HOURS.
[2024-05-25] MEDS ORDERED: MetFORMIN HCl 500 mg PO SCH (01:00)
[2024-05-25 04:23] VITALS: BP 165/70
[2024-05-25 04:29] LABS: Source, Urine Clean Catch
[2024-05-25 04:52] VITALS: BP 144/38
[2024-05-25 05:04] LABS: Bilirubin, Urine Neg (Neg); Blood, Urine 5+ (Neg); Glucose Qualitative, Urine 4+ (Neg); Ketones, Urine Neg (Neg); Leukocyte Esterase, Urine 3+ (Neg); Nitrite, Urine Neg (Neg); Protein, Urine 3+ (Neg); Specific Gravity, Urine 1.025 (1.003-1.022); Urobilinogen, Urine NORM (Normal)
[2024-05-25 05:10] LABS: Appearance, Urine Cloudy (Clear); Color, Urine Yellow (P-Yellow)
[2024-05-25 05:17] LABS: Bacteria Mod /hpf; Squamous Epithelial Cells Not Seen /hpf (Few); White Blood Cells, Urine TNTC /hpf (0-5)
--- NOTE | 2024-05-25 05:52 | NUR ---
CHECKED PT CBG AFTER PT REPORTED NAUSEA AND INCREASED WEAKNESS/DIZZYNESS, IT WAS 329 AFTER ALL PREVIOUS INSULIN/METFORMIN GIVEN EARLIER IN SHIFT. HOSPITALIST CALLED AND INSTRUCTIONS GIVEN TO GIVE AM DOSE 35 UNITS LANTUS NOW. PT ALSO STARTED HAVING C/O OF MILD SUBSTERNAL CP/PRESSURE, EKG DONE AND FOUND ATRIAL PACED WITH PROLONGED AV CONDUCTION @ 62 BPM. NE INTERVAL 226 MS. BP ALSO ELVATED AND IV HYDRALZINE GIVEN AND DECREASED SYSTOLIC FROM 165-144.
--- NOTE | 2024-05-25 06:00 | NUR ---
SHIFT SUMMARY NOC PT A/O X 4. PLEASANT AND COOPERATIVE WITH CARE. BP ELEVATED SYSTOLIC 182, IV 2O MG HYDRALAZINE GIVEN. HS BLOOD GLUCOSE 394, SCHEDULED 30 UNITS GLARGINE, AND 6 UNITS HUMALOG GIVEN. HOSPITALIST NOTIFIED, BUT NO ADDITIONAL COVERAGE ORDERED. AFTER 2 HOURS BLOOD GLUCOSE 338 AND 5 ADDITIONAL UNITS HUMALOG GIVEN WELL DR MONTALVO, WHO STARTED PT ON METFORMIN 500 MG BID WITH FIRST DOSE @ 0100. PT RECHECKED @ 0437 AFTER REPORTIING NAUSEA, DIZZYNESS, AND INCREASED WEAKNESS, HOSPITALIST NOTIFIED AND INSTRUCTIONS GIVEN TO GIVE AM DOSE 35 UNITS LANTUS NOW. PT ALSO HAD C/O OF MILD SUBSTERNAL CP/PRESSURE, EKG ATRIAL PACED PROLONG AV CONDUCTION WITH NE INTERVAL 226 MS. PT ALSO RECEIVED IV HYDRALAZINE X 2 FOR ELEVATED BP. POWERGLIDE IN CANDICE THAT DOES NOTDRAW. CULTURED UA ORDERED AND STILL AWAITING COLLECTION. PT DID NOT WANT TO WEAR CPAP FOR SLEEP AND REMAINED ON ROOM AIR, SPOT CHECKING SPO2 AND REMAINED >90%. PT CURRENTLY RESTING WITH BED IN LOWEST POSITION, AND CALL LIGHT WITHIN REACH.
[2024-05-25 06:15] LABS: BASOPHILS ABSOLUTE AUTO 0.04 K/mm3 (0.00-0.23); BASOPHILS PERCENT AUTO 0 % (0-2); EOSINOPHILS ABSOLUTE AUTO 0.09 K/mm3 (0.00-0.68); EOSINOPHILS PERCENT AUTO 1 % (0-6); Hematocrit 38.2 % (33.0-51.0); Hemoglobin 12.6 g/dL (11.5-16.0); IMMATURE GRAN ABSOLUTE AUTO 0.08 K/mm3 (0.00-0.10); IMMATURE GRAN PERCENT AUTO 1 % (0-1); LYMPHOCYTES ABSOLUTE AUTO 1.95 K/mm3 (0.84-5.20); LYMPHOCYTES PERCENT AUTO 18 % (21-46); MONOCYTES ABSOLUTE AUTO 0.99 K/mm3 (0.16-1.47); MONOCYTES PERCENT AUTO 9 % (4-13); Mean Corpuscular HGB 28.9 pg (26.0-34.0); Mean Corpuscular Volume 88 fL (80-100); Mean Platelet Volume 10.7 fL (9.1-12.4); NEUTROPHILS ABSOLUTE AUTO 7.86 K/mm3 (1.96-9.15); NEUTROPHILS PERCENT AUTO 71 % (41-73); Platelet Count 257 K/mm3 (150-400); RDW Coefficient Variation 14.6 % (11.7-14.2); RDW Standard Deviation 47.1 fL (35.1-46.3); Red Blood Cell Count 4.36 M/mm3 (3.80-5.20); White Blood Cell Count 11.01 K/mm3 (4.00-11.30)
[2024-05-25 06:42] LABS: Albumin, Blood 2.6 g/dL (3.4-5.0); Albumin/Globulin Ratio 0.7 (0.8-1.8); Bilirubin, Total 0.6 mg/dL (0.1-1.0); Bun/Creatinine Ratio 31.2 (12.0-20.0); Calcium, Blood 7.9 mg/dL (8.5-10.1); Creatinine, Blood 0.96 mg/dL (0.40-1.00); Globulin, Blood 3.5 g/dL (2.2-4.0); Potassium, Blood 4.2 mmol/L (3.5-5.5); Total Protein, Blood 6.1 g/dL (6.4-8.2)
[2024-05-25 08:25] VITALS: BP 146/50
[2024-05-25] MEDS ORDERED: NS 250 ML IV PRN (08:40)
[2024-05-25] MEDS ORDERED: Insulin Glargine-Yfgn 100 Unit/mL 3 ML SYR SC SCH ×2 (09:00→21:00)
[2024-05-25 09:13] LABS: Base Excess Venous -4.1 mmol/L; Bicarbonate Venous 21.7 mmol/L (24.0-30.0); PCO2 Venous 31.8 mmHg (38-42); pH Blood Venous 7.42 (7.34-7.37)
[2024-05-25] MEDS ORDERED: Metoclopramide HCl 5MG / ML 2ML Vial IV PRN (12:35)
[2024-05-25] MEDS ORDERED: Pantoprazole Sodium 40 MG Injection IV SCH (13:00)
[2024-05-25] MEDS ORDERED: Insulin Human Lispro 100 Units/ML 3ML Syringe SC ONE (14:15)
[2024-05-25] MEDS ORDERED: NS 1,000 ML IV SCH (16:20)
[2024-05-25 16:46] VITALS: BP 195/77
[2024-05-25] MEDS ORDERED: Insulin Human Lispro 100 Units/ML 3ML Syringe SC SCH (17:30)
[2024-05-25 18:14] VITALS: BP 159/53
--- NOTE | 2024-05-25 18:36 | NUR ---
SHIFT SUMMARY PT CONT LEVEL OF CARE. PT REMAINS A&O X4 AND ASSIST X1 TO RESTROOM. PT BLOOD SUGAR NOTED TO CONT TO REMAIN ELEVATED INSULIN DOSE BEEN ADJUSTED BY PROVIDER THIS SHIFT. PT NOTED TO BE NAUSEATED THIS SHIFT AND HAS RECIEVEN PRN ZOFRAN WITH EFFECTIVENESS FOR SEVERAL HOURS. PT NOTED TO HAVE ELEVATED BP THIS AFTERNOON PRN HYDRALAZINE GIVEN AND BP NOTED TO START TO COME DOWN WHEN CHECKED. PT HAS RECEIVED A NEW ORDER FOR TELE THIS SHIFT.
[2024-05-25 20:56] VITALS: BP 143/78
[2024-05-26] VITALS (8 sets, daily range): BP systolic 135–186; BP diastolic 45–70
--- NOTE | 2024-05-26 06:19 | NUR ---
SHIFT SUMMARY NOC PT A/O X 4. PLEASANT AND COOPERATIVE WITH CARE. BP STABLE. HS CBG 266 WITH 2 UNITS HUMALOG GIVEN PER SLIDING SCALE WELL SCHEDULED 40 UNITS OF LANTUS GIVEN, SPOT CHECK DURING AM VS CBG 168. PT HAS NOT HAD ANY C/O OF NAUSEA OF CP. ON TELE ATRIAL PACED @ 65 BPM. NS INFUSING @ 150 ML/HR IN POWERGLIDE IN CANDICE. PT USING HOME CPAP AT NIGHT FOR SLEEP. PT CURRENTLY RESTING WITH BED IN LOWEST POSITION, AND CALL LIGHT WITHIN REACH.
[2024-05-26 10:13] LABS: BASOPHILS ABSOLUTE AUTO 0.03 K/mm3 (0.00-0.23); BASOPHILS PERCENT AUTO 0 % (0-2); EOSINOPHILS ABSOLUTE AUTO 0.06 K/mm3 (0.00-0.68); EOSINOPHILS PERCENT AUTO 1 % (0-6); Hematocrit 40.2 % (33.0-51.0); Hemoglobin 13.3 g/dL (11.5-16.0); IMMATURE GRAN ABSOLUTE AUTO 0.08 K/mm3 (0.00-0.10); IMMATURE GRAN PERCENT AUTO 1 % (0-1); LYMPHOCYTES PERCENT AUTO 12 % (21-46); MONOCYTES ABSOLUTE AUTO 0.71 K/mm3 (0.16-1.47); MONOCYTES PERCENT AUTO 6 % (4-13); Mean Corpuscular HGB Conc 33.1 g/dL (31.5-36.5); Mean Corpuscular Volume 88 fL (80-100); Mean Platelet Volume 10.4 fL (9.1-12.4); NEUTROPHILS ABSOLUTE AUTO 10.64 K/mm3 (1.96-9.15); NEUTROPHILS PERCENT AUTO 82 % (41-73); Platelet Count 276 K/mm3 (150-400); RDW Coefficient Variation 14.8 % (11.7-14.2); RDW Standard Deviation 47.8 fL (35.1-46.3); Red Blood Cell Count 4.59 M/mm3 (3.80-5.20); White Blood Cell Count 13.02 K/mm3 (4.00-11.30)
[2024-05-26 10:43] LABS: Albumin, Blood 2.7 g/dL (3.4-5.0); Albumin/Globulin Ratio 0.7 (0.8-1.8); Bilirubin, Total 0.6 mg/dL (0.1-1.0); Bun/Creatinine Ratio 28.4 (12.0-20.0); Calcium, Blood 8.3 mg/dL (8.5-10.1); Creatinine, Blood 1.16 mg/dL (0.40-1.00); Globulin, Blood 3.7 g/dL (2.2-4.0); Potassium, Blood 3.9 mmol/L (3.5-5.5); Total Protein, Blood 6.4 g/dL (6.4-8.2)
--- NOTE | 2024-05-26 18:47 | NUR ---
SHIFT SUMMARY PATIENT A/OX4, ABLE TO MAKE NEEDS KNOWN. AMBULATING TO THE BATHROOM 1 PERSON ASSIST. PATIETN COMPLAINING OF NAUSEA TODAY, NO EMESIS, MEDICATED PER NOV. HYDRALAZINE GIVEN X2 FOR SBP>170. MD NOTIFIED THIS AFTERNOON REGARDING PATIENT'S CONTINUOUS IV FLUIDS AND PATIENT BECOMING EDEMETOUS. ORDER DISCONTINUED, PATIENT NOTED WITH CRACKLES IN BILATERAL LOWER LOBES. DENIES DYSPNEA OR SOB, CONTINUOUS PULSE OX IN PLACE SPO2 WNL. IV ANTIBIOTICS INFUSED PER NOV. TELEMETRY IN PLACE, NO EVENTS NOTED. NO OTHER CONCERNS AT THIS TIME.
--- NOTE | 2024-05-26 19:25 | NUR ---
NO BM FOR 7-10 DAYS PER . STATES "SHE'S NOT AN EVERY DAY GO-ER ANYWAY". PRNS GIVEN, NOC NURSE INFORMED. WILL CONTINUE TO MONITOR AND IF MEDS NOT EFEFCTIVE TONIGHT WILL ESCALATE.
[2024-05-26] MEDS ORDERED: Insulin Glargine-Yfgn 100 Unit/mL 3 ML SYR SC SCH (21:00)
[2024-05-27 02:43] VITALS: BP 162/49
--- NOTE | 2024-05-27 03:35 | NUR ---
TELEPHONE ORDER, NEW FROM , ON-CALL HOSPITALIST: LAB UA. SENT TO LAB AT 0335 BY THIS PERSONNEL ARBITRATOR. NO ADDITIONAL NEW ORDERS AT THIS TIME.
[2024-05-27 03:42] LABS: Source, Urine Clean Catch
[2024-05-27 03:49] LABS: Bilirubin, Urine Neg (Neg); Blood, Urine 4+ (Neg); Glucose Qualitative, Urine Neg (Neg); Ketones, Urine Neg (Neg); Leukocyte Esterase, Urine 3+ (Neg); Nitrite, Urine Neg (Neg); Protein, Urine 3+ (Neg); Specific Gravity, Urine 1.025 (1.003-1.022); Urobilinogen, Urine NORM (Normal)
--- NOTE | 2024-05-27 03:57 | NUR ---
SHIFT SUMMARY PT IS A&O X3-4, VERY KIND, AND COOPERATIVE WITH CARE. PT IS ABLE TO MAKE HER NEEDS KNOWN. DR ORTIZ NOTIFIED D/T URINE RETENTION ON THIS SHIFT. BLADDER SCAN: 645MLS, PT VOIDED 350MLS AND IS RETAINING 363MLS [place] [address]. URINE COLLECTED AND SENT TO LAB, URINE APPEARS CLOUDY, LIGHT YELLOW IN COLOR. PT DENIES PAIN AND DISCOMFORT. PITTING EDEMA NOTED ON UE'S +3, AND LE'S +2. NOTIFIED. STANDING WEIGHT 124.0KG (4KG GAIN SINCE ADMISSION.) HS B,INSULIN ADMINISTERED ORDERED. NO ACUTE EVENTS DURING THIS SHIFT. BED AT THE LOWEST POSITION, CALL LIGHT WITHIN REACH.
[2024-05-27 04:03] LABS: Appearance, Urine Cloudy (Clear); Color, Urine Yellow (P-Yellow)
[2024-05-27 04:04] LABS: Bacteria Many /hpf; Squamous Epithelial Cells Few /hpf (Few); White Blood Cells, Urine TNTC /hpf (0-5)
[2024-05-27 04:05] LABS: Yeast/Fungi Urine Mod /hpf
[2024-05-27 06:33] LABS: Bun/Creatinine Ratio 27.4 (12.0-20.0); Calcium, Blood 8.4 mg/dL (8.5-10.1); Creatinine, Blood 1.17 mg/dL (0.40-1.00); Potassium, Blood 3.7 mmol/L (3.5-5.5)
[2024-05-27 08:07] VITALS: BP 163/48
[2024-05-27 08:09] LABS: BASOPHILS ABSOLUTE AUTO 0.01 K/mm3 (0.00-0.23); BASOPHILS PERCENT AUTO 0 % (0-2); EOSINOPHILS ABSOLUTE AUTO 0.08 K/mm3 (0.00-0.68); EOSINOPHILS PERCENT AUTO 1 % (0-6); Hematocrit 36.7 % (33.0-51.0); Hemoglobin 12.2 g/dL (11.5-16.0); IMMATURE GRAN ABSOLUTE AUTO 0.06 K/mm3 (0.00-0.10); IMMATURE GRAN PERCENT AUTO 1 % (0-1); LYMPHOCYTES ABSOLUTE AUTO 1.53 K/mm3 (0.84-5.20); LYMPHOCYTES PERCENT AUTO 12 % (21-46); MONOCYTES ABSOLUTE AUTO 0.97 K/mm3 (0.16-1.47); MONOCYTES PERCENT AUTO 8 % (4-13); Mean Corpuscular HGB 28.5 pg (26.0-34.0); Mean Corpuscular HGB Conc 33.2 g/dL (31.5-36.5); Mean Corpuscular Volume 86 fL (80-100); Mean Platelet Volume 9.9 fL (9.1-12.4); NEUTROPHILS ABSOLUTE AUTO 10.31 K/mm3 (1.96-9.15); NEUTROPHILS PERCENT AUTO 80 % (41-73); Platelet Count 281 K/mm3 (150-400); RDW Standard Deviation 47.2 fL (35.1-46.3); Red Blood Cell Count 4.28 M/mm3 (3.80-5.20); White Blood Cell Count 12.96 K/mm3 (4.00-11.30)
[2024-05-27] MEDS ORDERED: LevoFLOXacin 750 MG/D5W 150ML 150 ML IV SCH (09:15)
[2024-05-27 09:49] VITALS: BP 155/40
--- NOTE | 2024-05-27 11:52 | NUR ---
LEFT MESSAGE WITH MD REGARDING URINARY RETENTION PATIENT RETAINING URINA ND UNABLE TO VOID. BLADDER SCAN SHOWED 562ML. MD CALLED X3 WITH NO ANSWER. VOICEMAIL LEFT TO RETURN CALL. CHARGE NURSE INFORMED. WILL CONTINUE TO CALL TO GET ORDER FOR STRAIGHT CATH.
--- NOTE | 2024-05-27 12:07 | NUR ---
TELEPHONE ORDERS CALLED DR. IVEY TO INFORM HIM OF PATIENT'S BOWEL MOVEMENT STATUS. PER PATIENT'S PATIENT WIHTOUT BM FOR 7-10 DAYS. PRNS GIVEN YESTERDAY INEFFECTIVE. DULCOLAX SUPPOSITORY GIVEN LATE THIS MORNING, SO FAR INEFFECTIVE. MD AWARE. , PUNEET, CALLED THIS AFTERNOON STATING [facility] HAS CALLED TO SCHEDULE PATIENT FOR ENDOSCOPY TO SEE IF PATIENT STILL IN NEED OF J TUBE. DR. IVEY WAS GIVEN DR. TAY FROM [facility] PHONE NUMBER TO CALL. DR. IVEY ALSO INFORMED THAT PATIENT COMPLAINING OF NAUSEA AND NOT TOLERATING INCREASE RATE OF TUBE FEED. TELEPHONE ORDERS RECIEVED TO DECREASE RATE BACK TO 20ML/HR. PRN GIVEN FOR NAUSEA AND TUBE FEED HELD FOR 1 HOUR AND WILL RESTART AT LOWER RATE. WOUND CARE ORDERS ALSO RECIEVED FOR J TUBE SITE AND SKIN MACERATION.
--- NOTE | 2024-05-27 12:23 | NUR ---
TELEPHONE ORDERS SPOKE WITH DR. MURRAY REGARDING PATIENT'S URINARY RETENTION. ORDER TO STRAIGHT CATH PER POLICY RECOMMENDATIONS.
--- NOTE | 2024-05-27 12:55 | NUR ---
STRAIGHT CATH PROVIDED 700ML DARK YELLOW URINE OBTAINED.
--- NOTE | 2024-05-27 13:08 | NUR ---
TELEPHONE ORDERS-NAUSEA CALLED DR. MURRAY REGARDING PATIENT'S CONTINUED NAUSEA W/O EMESIS. ZOFRAN AND REGLAN INEFFECTIVE. [facility] WILL PLACE ORDER FOR COMPAZINE AND DC ZOFRAN AND REGLAN.
[2024-05-27] MEDS ORDERED: Prochlorperazine Edisylate 10 mg Vial IV PRN (13:15)
--- NOTE | 2024-05-27 14:24 | NUR ---
NEW ORDER FOR COMPAZINE INEFFECTIVE. CALLED TO NOTIFY. MD STATES WILL PLACE NEW ORDER.
[2024-05-27] MEDS ORDERED: Promethazine HCl 25 MG Tab PO PRN (14:30)
[2024-05-27 15:59] VITALS: BP 174/61
[2024-05-27] MEDS ORDERED: Pantoprazole Sodium 40 MG Tab PO SCH (16:30)
--- NOTE | 2024-05-27 18:31 | NUR ---
SHIFT SUMMARY PATIENT A/OX4 THIS AM, BECOMING INCREASINGLY CONFUSED. CONTINUES TO ANSWER QUESTIONS APPROPRIATELY BUT PATIENT LETHARGIC THIS EVENING. PATIENT WITH NO APPETITE DUE TO NAUSEA, MD AWARE AND MULTIPLE NEW MEDICATIONS ORDERED FOR NAUSEA. PATIENT STATES PHENERGAN "SOMEWHAT" EFFECTIVE BUT CONTINUES WITH LITTLE APPETITE AND NAUSEA. PRN HYDRALAZINE GIVEN X2 FOR ELEVATED SBP. STRAIGHT CATH ORDERED PER PROTOCOL, LOU HAS BEEN STRAIGHT CATHED TWICE THIS SHIFT. POWERGLIDE REMOVED THIS AFTERNOON FOR INFILTRATION AND PATIENT CONTINUES TO HAVE GENRALIZED PITTING EDEMA THROUGHOUT BODY 3+, MD AWARE AND ADVISED TO CONTINUE TO MONITOR.
--- NOTE | 2024-05-27 18:31 | NUR ---
BLADDER SCAN SHOWED 554ML, SECOND STRAIGHT CATH OBTAINED PER PROTOCOL.
[2024-05-27 19:43] VITALS: BP 133/49
[2024-05-27] MEDS ORDERED: Lactobacil 2-S.Thermo-Bifido 1 1 Cap PO SCH (21:00)
--- NOTE | 2024-05-28 02:52 | NUR ---
SHIFT SUMMARY PT IS A&O X3-4, ABLE TO MAKE HER NEEDS KNOWN. PT APPEARS VERY TIRED. LE,TRUNK, AND UE EDEMA >+3. LUNG SOUNDS DIMINISHED TO AUSCULTATION. BOWEL TONES HYPOACTIVE. BLADDER SCAN 300MLS. TELE: PACED@75. HS B. PT HAS VERY POOR APPETITE. SML AMOUNT OF YOGURT WITH GLARGINE ORDERED. NO ACUTE EVENTS DURING THIS SHIFT. BED AT THE LOWEST POSITION, CALL LIGHT WITHIN REACH. PT IS ABLE TO MAKE HER NEEDS KNOWN.
[2024-05-28 04:43] VITALS: BP 174/61
[2024-05-28 08:00] LABS: BASOPHILS ABSOLUTE AUTO 0.01 K/mm3 (0.00-0.23); BASOPHILS PERCENT AUTO 0 % (0-2); EOSINOPHILS ABSOLUTE AUTO 0.09 K/mm3 (0.00-0.68); EOSINOPHILS PERCENT AUTO 1 % (0-6); Hematocrit 36.2 % (33.0-51.0); Hemoglobin 12.3 g/dL (11.5-16.0); IMMATURE GRAN ABSOLUTE AUTO 0.06 K/mm3 (0.00-0.10); IMMATURE GRAN PERCENT AUTO 0 % (0-1); LYMPHOCYTES ABSOLUTE AUTO 1.34 K/mm3 (0.84-5.20); LYMPHOCYTES PERCENT AUTO 10 % (21-46); MONOCYTES ABSOLUTE AUTO 1.12 K/mm3 (0.16-1.47); MONOCYTES PERCENT AUTO 8 % (4-13); Mean Corpuscular HGB 29.1 pg (26.0-34.0); Mean Corpuscular Volume 86 fL (80-100); Mean Platelet Volume 10.2 fL (9.1-12.4); NEUTROPHILS ABSOLUTE AUTO 11.14 K/mm3 (1.96-9.15); NEUTROPHILS PERCENT AUTO 81 % (41-73); Platelet Count 286 K/mm3 (150-400); RDW Coefficient Variation 14.8 % (11.7-14.2); RDW Standard Deviation 46.3 fL (35.1-46.3); Red Blood Cell Count 4.22 M/mm3 (3.80-5.20); White Blood Cell Count 13.76 K/mm3 (4.00-11.30)
[2024-05-28 08:23] LABS: Albumin, Blood 2.4 g/dL (3.4-5.0); Albumin/Globulin Ratio 0.7 (0.8-1.8); Bilirubin, Total 0.9 mg/dL (0.1-1.0); Bun/Creatinine Ratio 23.1 (12.0-20.0); Calcium, Blood 8.4 mg/dL (8.5-10.1); Creatinine, Blood 1.08 mg/dL (0.40-1.00); Globulin, Blood 3.3 g/dL (2.2-4.0); Potassium, Blood 3.4 mmol/L (3.5-5.5); Total Protein, Blood 5.7 g/dL (6.4-8.2)
[2024-05-28 08:37] VITALS: BP 147/64
--- NOTE | 2024-05-28 09:56 | NUR ---
TELEMETRY CALLED 6 BEATS V TACH. INFORMED. PATIENT RESTING IN RECLINER, ASYMPTOMATIC.
[2024-05-28] MEDS ORDERED: LevoFLOXacin 750 MG/D5W 150ML 150 ML IV SCH (10:30)
[2024-05-28 14:48] LABS: Magnesium, Blood 2.3 mg/dL (1.6-2.4); Phosphorus, Blood 2.6 mg/dL (2.5-4.9)
--- NOTE | 2024-05-28 18:57 | NUR ---
SHIFT SUMMARY PATIENT A/OX4, ABLE TO MAKE NEEDS KNOWN AND CALLS APPROPRIATELY. PICKARD IN PLACE, DRAINING TEA COLORED URINE. MD INFORMED OF NEED FOR PRN HYDRALAZINE THE LAST THREE SHIFTS, LOSARTAN INCREASED TO BID. TELEMETRY IN PLACE, PATIENT NOTED WITH 6 BEATS V TACH TODAY AND MD NOTIFIED. PATIENT CONTINUES TO HAVE GENERALIZED EDEMA 3+ THROUGHOUT AND COARSE CRACKLES TO BILATERAL LOWER LOBES. PIV DRESSING CHANGED TODAY. PATIENT PARTICIPATED WITH PHYSICAL THERAPY TODAY AND WAS ABLE TO GET UP IN THE RECLINER FOR BOTH BREAKFAST AND DINNER. PATIENT CONTINUES WITH INTERMITTENT NAUSEA, PRNS ADMINISTERED. NO OTHER CONCERNS THIS SHIFT.
[2024-05-28 20:09] VITALS: BP 185/59
[2024-05-28] MEDS ORDERED: Losartan Potassium 50 MG Tab PO SCH (21:00)
[2024-05-29 04:34] VITALS: BP 179/51
[2024-05-29 05:29] LABS: BASOPHILS ABSOLUTE AUTO 0.03 K/mm3 (0.00-0.23); BASOPHILS PERCENT AUTO 0 % (0-2); EOSINOPHILS ABSOLUTE AUTO 0.25 K/mm3 (0.00-0.68); EOSINOPHILS PERCENT AUTO 2 % (0-6); Hematocrit 36.2 % (33.0-51.0); Hemoglobin 12.5 g/dL (11.5-16.0); IMMATURE GRAN PERCENT AUTO 1 % (0-1); LYMPHOCYTES ABSOLUTE AUTO 1.71 K/mm3 (0.84-5.20); LYMPHOCYTES PERCENT AUTO 12 % (21-46); MONOCYTES ABSOLUTE AUTO 1.15 K/mm3 (0.16-1.47); MONOCYTES PERCENT AUTO 8 % (4-13); Mean Corpuscular HGB 29.2 pg (26.0-34.0); Mean Corpuscular HGB Conc 34.5 g/dL (31.5-36.5); Mean Corpuscular Volume 85 fL (80-100); Mean Platelet Volume 10.1 fL (9.1-12.4); NEUTROPHILS ABSOLUTE AUTO 10.96 K/mm3 (1.96-9.15); NEUTROPHILS PERCENT AUTO 77 % (41-73); Platelet Count 256 K/mm3 (150-400); RDW Coefficient Variation 14.7 % (11.7-14.2); RDW Standard Deviation 45.1 fL (35.1-46.3); Red Blood Cell Count 4.28 M/mm3 (3.80-5.20)
[2024-05-29 05:47] LABS: Albumin, Blood 2.2 g/dL (3.4-5.0); Albumin/Globulin Ratio 0.7 (0.8-1.8); Bun/Creatinine Ratio 26.3 (12.0-20.0); Calcium, Blood 8.4 mg/dL (8.5-10.1); Creatinine, Blood 0.88 mg/dL (0.40-1.00); Globulin, Blood 3.1 g/dL (2.2-4.0); Potassium, Blood 3.7 mmol/L (3.5-5.5); Total Protein, Blood 5.3 g/dL (6.4-8.2)
--- NOTE | 2024-05-29 06:32 | NUR ---
FLOOR BROKER PATIENT IS A&OX4, BP ELEVATED THROUGHOUT SHIFT, PRN HYDRALAZINE GIVEN. PATIENT APPEARS LETHARGIC. PATIENT BLOOD GLUCOSE DURING THE SHIFT WAS 98. INSULINES WERE HELD. PATIENT IS ON TELE RUNNING SINUS IN THE 60S.
[2024-05-29 08:02] VITALS: BP 145/47
[2024-05-29] MEDS ORDERED: Insulin Glargine-Yfgn 100 Unit/mL 3 ML SYR SC ONE (09:00)
[2024-05-29] MEDS ORDERED: D5W-1/2NS 1,000 ML IV SCH (10:00)
[2024-05-29] MEDS ORDERED: Ondansetron HCl 2 MG / ML 2ML Vial IV PRN (14:15)
[2024-05-29 15:21] VITALS: BP 160/58
--- NOTE | 2024-05-29 18:08 | NUR ---
SHIFT SUMMARY PT CONT LEVEL OF CARE WITH NO ACUTE CHANGES NOTED. PT CONT TO VOICE C/O OF NAUSEA THIS SHIFT MEDICATED PER EMAR. PT IS A&OX 3 THIS AND ASSIST X1 WITH FWW. PT NOTED TO WORK WITH THERAPY THIS SHIFT. PT HAS BEEN UP TO CHAIR FOR ALL MEALS THIS SHIFT. PT NOTED TO HAVE +3 EDEMA TO BLE AND BUE.
[2024-05-29 19:19] VITALS: BP 150/57
[2024-05-30 03:00] VITALS: BP 166/62
--- NOTE | 2024-05-30 05:49 | NUR ---
WARP BLEACHING VAT TENDER NOTE PATIENT IS A&OX4, ELEVATED BP, PRN BP MEDS GIVEN. PATIENT COMPLAINED OF NAUSEA, PRN NAUSEA MEDS GIVEN. PATIENT IS ON ROOM AIR BUT USES CPAP AT NIGHT. PATIENT CALLS APPROPRIATELY.
[2024-05-30 06:17] LABS: BASOPHILS ABSOLUTE AUTO 0.02 K/mm3 (0.00-0.23); BASOPHILS PERCENT AUTO 0 % (0-2); EOSINOPHILS ABSOLUTE AUTO 0.25 K/mm3 (0.00-0.68); EOSINOPHILS PERCENT AUTO 2 % (0-6); Hematocrit 35.3 % (33.0-51.0); IMMATURE GRAN ABSOLUTE AUTO 0.06 K/mm3 (0.00-0.10); IMMATURE GRAN PERCENT AUTO 1 % (0-1); LYMPHOCYTES ABSOLUTE AUTO 1.87 K/mm3 (0.84-5.20); LYMPHOCYTES PERCENT AUTO 16 % (21-46); MONOCYTES ABSOLUTE AUTO 1.08 K/mm3 (0.16-1.47); MONOCYTES PERCENT AUTO 9 % (4-13); Mean Corpuscular HGB 29.1 pg (26.0-34.0); Mean Corpuscular Volume 86 fL (80-100); Mean Platelet Volume 10.5 fL (9.1-12.4); NEUTROPHILS ABSOLUTE AUTO 8.45 K/mm3 (1.96-9.15); NEUTROPHILS PERCENT AUTO 72 % (41-73); Platelet Count 267 K/mm3 (150-400); RDW Coefficient Variation 14.6 % (11.7-14.2); RDW Standard Deviation 45.7 fL (35.1-46.3); Red Blood Cell Count 4.13 M/mm3 (3.80-5.20); White Blood Cell Count 11.73 K/mm3 (4.00-11.30)
[2024-05-30 06:37] LABS: Bun/Creatinine Ratio 19.4 (12.0-20.0); Calcium, Blood 8.3 mg/dL (8.5-10.1); Creatinine, Blood 0.93 mg/dL (0.40-1.00); Magnesium, Blood 2.3 mg/dL (1.6-2.4); Phosphorus, Blood 2.6 mg/dL (2.5-4.9); Potassium, Blood 3.9 mmol/L (3.5-5.5)
[2024-05-30 07:45] VITALS: BP 147/44
[2024-05-30] MEDS ORDERED: D5W-1/2NS 1,000 ML IV SCH (14:40)
[2024-05-30] MEDS ORDERED: Furosemide 10 MG / ML 2ML Vial IV SCH (15:00)
--- NOTE | 2024-05-30 15:32 | NUR ---
UPDATE THIS RN COVERING PRIMARY RN'S BREAK, EMAR WITH INSULIN GLARGINE 40 UNITS DUE AT 40 U A NEW ORDER. CBG 164, WITH PT NOT EATING MUCH. THIS RN NOTIFIED PROVIDER. ORDERS TO CHANGE THIS COVERAGE TO 2100. RN TO MONITOR CBG AND NOTIFY PROVIDER OF ANY CHANGES. WILL UPDATE PRIMARY RN UPON RETURN.
[2024-05-30 15:42] VITALS: BP 184/44
[2024-05-30] MEDS ORDERED: Insulin Glargine-Yfgn 100 Unit/mL 3 ML SYR SC SCH ×2 (16:00→21:00)
--- NOTE | 2024-05-30 16:03 | NUR ---
SHIFT SUMMARY PT CONT LEVEL OF CARE WITH NO ACUTE CHANGES NOTED. PT CONT TO VOICE C/O NAUSEA THIS SHIFT PRN ZOFRAN ADMINISTERED. PT WORK WITH THERAPY THIS SHIFT AND HAS BEEN UP IN CHAIR THROUGHOUT THE DAY. PT NOTED TO HAVE +3 EDEMA TO BILAT UPPER AND LOWER EXTREMETIES WITH WATER BLISTERS NOTED TO HANDS AND ARMS. PHYSICIAN WAS NOTIFIED REGARDING THIS AND NEW ORDER WAS RECEIVED FOR LASIX AND TO CHANGE THE RATE OF D5 TO 50/HR.
[2024-05-30] MEDS ORDERED: TraMADol HCl 50 MG Tab PO PRN (16:55)
--- NOTE | 2024-05-30 18:19 | NUR ---
CALLED PLACED TO CT ABOUT 1630 RE TO WHEN THEY WERE GOING TO COME GET PT TO HAVE CT OF ABD DONE. CT STATED IT WOULD BE ABOUT AN HOUR. PHYSICAN NOTIFIED WHOM THEN PLACED ORDER FOR STAT CT. STILL CURRENTLY WAITING ON CT TO COME GET PT.
[2024-05-30 20:04] VITALS: BP 173/50
[2024-05-31] VITALS (7 sets, daily range): BP systolic 157–211; BP diastolic 35–57
--- NOTE | 2024-05-31 06:47 | NUR ---
VSS, PT SLEPT MOST OF SHIFT. NO COMPLAINTS OF NAUSEA OR PAIN. CT PERFORMED AT START OF SHIFT, NON CONCERNING. PICKARD DRAINING APPROPRIATELY. PT VERY EDEMATOUS, LAB UNABLE TO OBTAIN BLOOD, MIDLINE MAY BE NECESSARY.
[2024-05-31 10:23] LABS: BASOPHILS ABSOLUTE AUTO 0.02 K/mm3 (0.00-0.23); BASOPHILS PERCENT AUTO 0 % (0-2); EOSINOPHILS ABSOLUTE AUTO 0.28 K/mm3 (0.00-0.68); EOSINOPHILS PERCENT AUTO 3 % (0-6); Hematocrit 33.6 % (33.0-51.0); Hemoglobin 11.3 g/dL (11.5-16.0); IMMATURE GRAN ABSOLUTE AUTO 0.08 K/mm3 (0.00-0.10); IMMATURE GRAN PERCENT AUTO 1 % (0-1); LYMPHOCYTES ABSOLUTE AUTO 1.58 K/mm3 (0.84-5.20); LYMPHOCYTES PERCENT AUTO 14 % (21-46); MONOCYTES ABSOLUTE AUTO 1.04 K/mm3 (0.16-1.47); MONOCYTES PERCENT AUTO 9 % (4-13); Mean Corpuscular HGB 28.6 pg (26.0-34.0); Mean Corpuscular HGB Conc 33.6 g/dL (31.5-36.5); Mean Corpuscular Volume 85 fL (80-100); NEUTROPHILS ABSOLUTE AUTO 8.13 K/mm3 (1.96-9.15); NEUTROPHILS PERCENT AUTO 73 % (41-73); Platelet Count 277 K/mm3 (150-400); RDW Coefficient Variation 14.5 % (11.7-14.2); RDW Standard Deviation 45.2 fL (35.1-46.3); Red Blood Cell Count 3.95 M/mm3 (3.80-5.20); White Blood Cell Count 11.13 K/mm3 (4.00-11.30)
[2024-05-31 10:50] LABS: Albumin, Blood 2.2 g/dL (3.4-5.0); Albumin/Globulin Ratio 0.7 (0.8-1.8); Bilirubin, Total 0.8 mg/dL (0.1-1.0); Bun/Creatinine Ratio 19.8 (12.0-20.0); Calcium, Blood 8.2 mg/dL (8.5-10.1); Creatinine, Blood 1.01 mg/dL (0.40-1.00); Globulin, Blood 3.2 g/dL (2.2-4.0); Potassium, Blood 3.9 mmol/L (3.5-5.5); Total Protein, Blood 5.4 g/dL (6.4-8.2)
--- NOTE | 2024-05-31 17:40 | NUR ---
SHIFT SUMMARY PATIENT IN BED THIS SHIFT. 4+ EDEMA TO ALL EXTREMITIES. ACCEPTING OF TURNS AND POSITIONS FREQUENTLY. GIVEN HYDRALAZINE THIS SHIFT FOR HTN. PICKARD IN PLACE, DRAINING TO GRAVITY. NO C/O NAUSEA OR ABD PAIN. CALL LIGHT IN REACH, ABLE TO MAKE NEEDS KNOWN. CARES ONGOING.
[2024-06-01 02:28] VITALS: BP 145/46
[2024-06-01 05:33] LABS: BASOPHILS ABSOLUTE AUTO 0.04 K/mm3 (0.00-0.23); BASOPHILS PERCENT AUTO 0 % (0-2); EOSINOPHILS ABSOLUTE AUTO 0.36 K/mm3 (0.00-0.68); EOSINOPHILS PERCENT AUTO 3 % (0-6); Hematocrit 32.6 % (33.0-51.0); Hemoglobin 10.9 g/dL (11.5-16.0); IMMATURE GRAN ABSOLUTE AUTO 0.09 K/mm3 (0.00-0.10); IMMATURE GRAN PERCENT AUTO 1 % (0-1); LYMPHOCYTES ABSOLUTE AUTO 2.16 K/mm3 (0.84-5.20); LYMPHOCYTES PERCENT AUTO 18 % (21-46); MONOCYTES ABSOLUTE AUTO 1.17 K/mm3 (0.16-1.47); MONOCYTES PERCENT AUTO 10 % (4-13); Mean Corpuscular HGB 28.5 pg (26.0-34.0); Mean Corpuscular HGB Conc 33.4 g/dL (31.5-36.5); Mean Corpuscular Volume 85 fL (80-100); Mean Platelet Volume 9.8 fL (9.1-12.4); NEUTROPHILS PERCENT AUTO 67 % (41-73); Platelet Count 300 K/mm3 (150-400); RDW Coefficient Variation 14.7 % (11.7-14.2); RDW Standard Deviation 46.1 fL (35.1-46.3); Red Blood Cell Count 3.82 M/mm3 (3.80-5.20); White Blood Cell Count 11.72 K/mm3 (4.00-11.30)
[2024-06-01 06:01] LABS: Bun/Creatinine Ratio 19.6 (12.0-20.0); Calcium, Blood 8.3 mg/dL (8.5-10.1); Creatinine, Blood 1.07 mg/dL (0.40-1.00); Potassium, Blood 3.9 mmol/L (3.5-5.5)
[2024-06-01 08:00] VITALS: BP 175/43
--- NOTE | 2024-06-01 08:03 | NUR ---
SHIFT SUMMARY: EM IS A&OX4. VSS, NO ACUTE EVENTS OVERNIGHT. IV TO R AC PATENT. PT ALLOWED SMALL TURNS/REPOSITIONS THIS SHIFT. SHE DID COMPLAIN OF AN UPSET STOMACH FOR WHICH SHE WAS MEDICATED BY MAR. NEERAJ GROVE, DRAINING TO COLLECTION BAG HANGING ABOVE FLOOR. SHE IS LYING IN BED WITH THE CALL LIGHT IN REACH. REPORT WAS GIVEN TO DAY SHIFT RN.
[2024-06-01] MEDS ORDERED: Metoclopramide HCl 10 MG Tab PO SCH (11:30)
--- NOTE | 2024-06-01 12:00 | NUR ---
assumed care of pt, pt resting in bed, not eating lunch except a few bites, call light in reach.
[2024-06-01 15:44] VITALS: BP 179/46
--- NOTE | 2024-06-01 18:37 | NUR ---
pt had a visitor this evening, she is refusing dinner, insulin held, she has complained of nausea several times today. no further changes this shift. call light in reach.
[2024-06-01 19:27] VITALS: BP 166/47
--- NOTE | 2024-06-01 22:30 | NUR ---
CALLED ON-CALL HOSPITALIST AND DISCUSSED WIDE PULSE PRESSURE, PT'S DECLINE IN ENERGY AND REPORTS OF FEELING UNWELL, WELL INCREASED EDEMA WITH BLISTERS FORMING ON PT'S LEFT HAND. NO NEW ORDERS AT THIS TIME.
[2024-06-01] MEDS ORDERED: Albumin (Human) 25gm/100ml 100 ML IV ONE (23:20)
[2024-06-02 02:56] VITALS: BP 147/32
[2024-06-02 05:32] LABS: Albumin/Globulin Ratio 0.7 (0.8-1.8); Bilirubin, Total 0.7 mg/dL (0.1-1.0); Bun/Creatinine Ratio 17.5 (12.0-20.0); Calcium, Blood 8.4 mg/dL (8.5-10.1); Creatinine, Blood 1.03 mg/dL (0.40-1.00); Potassium, Blood 3.9 mmol/L (3.5-5.5)
[2024-06-02 05:37] LABS: BASOPHILS ABSOLUTE AUTO 0.04 K/mm3 (0.00-0.23); BASOPHILS PERCENT AUTO 0 % (0-2); EOSINOPHILS ABSOLUTE AUTO 0.22 K/mm3 (0.00-0.68); EOSINOPHILS PERCENT AUTO 2 % (0-6); Hemoglobin 10.6 g/dL (11.5-16.0); IMMATURE GRAN ABSOLUTE AUTO 0.06 K/mm3 (0.00-0.10); IMMATURE GRAN PERCENT AUTO 1 % (0-1); LYMPHOCYTES ABSOLUTE AUTO 2.16 K/mm3 (0.84-5.20); LYMPHOCYTES PERCENT AUTO 22 % (21-46); MONOCYTES ABSOLUTE AUTO 1.08 K/mm3 (0.16-1.47); MONOCYTES PERCENT AUTO 11 % (4-13); Mean Corpuscular HGB 28.7 pg (26.0-34.0); Mean Corpuscular HGB Conc 33.1 g/dL (31.5-36.5); Mean Corpuscular Volume 87 fL (80-100); Mean Platelet Volume 10.5 fL (9.1-12.4); NEUTROPHILS ABSOLUTE AUTO 6.48 K/mm3 (1.96-9.15); NEUTROPHILS PERCENT AUTO 65 % (41-73); Platelet Count 258 K/mm3 (150-400); RDW Coefficient Variation 14.6 % (11.7-14.2); RDW Standard Deviation 46.2 fL (35.1-46.3); Red Blood Cell Count 3.69 M/mm3 (3.80-5.20); White Blood Cell Count 10.04 K/mm3 (4.00-11.30)
--- NOTE | 2024-06-02 06:40 | NUR ---
SHIFT SUMMARY: EM IS A&OX4. VSS, PT HAS BEEN SOMNOLENT THIS SHIFT. SHE AROUSES EASILY AND RESPONDS APPROPRIATELY. SHE WORE THE CPAP DURING SLEEP, O2 SATS MAINTAINING >90%. PT HAS NOT WANTED TO BE TURNED AND REPOSITIONED THIS SHIFT. EDUCATED PT ON IMPORTANCE OF SKIN CARE AND PREVENTION OF BREAKDOWN. PT VERBALIZED UNDERSTANDING. IV TO R AC PATENT, FLUIDS INFUSING PER NOV. PT'S ALBUMIN CONTINUES TO TREND DOWN, 2.0 THIS AM. PT CONTINUES TO COMPLAIN OF UPSET STOMACH, MEDICATED PER MAR. PICKARD PATENT, COLLECTION BAG HANGING ABOVE THE FLOOR. SHE IS LYING IN BED WITH THE CALL LIGHT IN REACH, BED IN LOWEST POSITION. WILL GIVE REPORT TO DAY SHIFT RN.
[2024-06-02 07:19] VITALS: BP 156/44
[2024-06-02] MEDS ORDERED: Albumin (Human) 25gm/100ml 100 ML IV ONE (13:00)
[2024-06-02 16:04] VITALS: BP 145/44
--- NOTE | 2024-06-02 17:57 | NUR ---
SHIFT SUMMARY PT VERY EDEMATOUS TODAY. OVERALL NAUSEOUS T/O THE DAY. SEE EMAR FOR PRN MEDS. POOR APPETITE. REFUSED BREAKFAST. ATTEMPTED TO EAT SOME LUNCH & DINNER, BUT BECAME MORE NAUSEOUS AFTERWARDS. SALTINES & CARBONATED DRINK PROVIDED FOR COMFORT. MEDICATED WITH MILK OF MAG IN CASE OF CONSTIPATION. PT STATES SHE IS PASSING GAS, BUT WAS UNSUCCESSFUL WITH A BM EARLIER TODAY. ROSALBA HOSE APPLIED TO LEGS FROM THE KNEE DOWN TO HELP WITH SWELLING. THERAPIES HELD TODAY DUE TO LETHERGY AND NAUSEA. REFUSED OOB TODAY. REPOSITIONED Q2H. NO OTHER ACUTE CHANGES IN ASSESMENT AT THIS TIME. VS REVIEWED. CALL LIGHT IN REACH.
[2024-06-02 19:55] VITALS: BP 167/45
[2024-06-03 02:30] VITALS: BP 145/54
--- NOTE | 2024-06-03 05:24 | NUR ---
SHIFT SUMMARY PT A&OX4 AND ANSWERS QUESTIONS APPROPRIATELY. PT COMPLAINS OF NAUSEA AND MEDICATED PER EMAR. PT EXPERIENCING 4+ EDEMA TO ALL EXTREMITIES. HELD HS DOSE OF 40 UNITS OF LONG ACTING INSULIN DUE TO CLINICAL JUDGEMENT AND PT POOR PO INTAKE. PT CBG LEVELS STABLE. VSS, NO COMPLAINTS OF CP/PRESSURE OR SOB. NO ACUTE EVENTS AT THIS TIME. PT REPOSITIONED Q2. PT LEFT IN A POSITION OF SAFETY WITH FALL PRECAUTIONS IN PLACE AND CALL LIGHT IN REACH.
[2024-06-03 06:49] LABS: BASOPHILS ABSOLUTE AUTO 0.05 K/mm3 (0.00-0.23); BASOPHILS PERCENT AUTO 1 % (0-2); EOSINOPHILS PERCENT AUTO 3 % (0-6); Hematocrit 32.5 % (33.0-51.0); Hemoglobin 10.7 g/dL (11.5-16.0); IMMATURE GRAN ABSOLUTE AUTO 0.07 K/mm3 (0.00-0.10); IMMATURE GRAN PERCENT AUTO 1 % (0-1); LYMPHOCYTES ABSOLUTE AUTO 1.93 K/mm3 (0.84-5.20); LYMPHOCYTES PERCENT AUTO 18 % (21-46); MONOCYTES PERCENT AUTO 11 % (4-13); Mean Corpuscular HGB 28.5 pg (26.0-34.0); Mean Corpuscular HGB Conc 32.9 g/dL (31.5-36.5); Mean Corpuscular Volume 86 fL (80-100); NEUTROPHILS ABSOLUTE AUTO 7.33 K/mm3 (1.96-9.15); NEUTROPHILS PERCENT AUTO 67 % (41-73); Platelet Count 245 K/mm3 (150-400); RDW Coefficient Variation 14.5 % (11.7-14.2); RDW Standard Deviation 46.3 fL (35.1-46.3); Red Blood Cell Count 3.76 M/mm3 (3.80-5.20); White Blood Cell Count 10.88 K/mm3 (4.00-11.30)
[2024-06-03 06:54] LABS: Albumin, Blood 2.5 g/dL (3.4-5.0); Albumin/Globulin Ratio 0.8 (0.8-1.8); Bilirubin, Total 0.9 mg/dL (0.1-1.0); Bun/Creatinine Ratio 16.1 (12.0-20.0); Calcium, Blood 8.3 mg/dL (8.5-10.1); Creatinine, Blood 0.93 mg/dL (0.40-1.00); Globulin, Blood 3.1 g/dL (2.2-4.0); Magnesium, Blood 1.8 mg/dL (1.6-2.4); Potassium, Blood 4.1 mmol/L (3.5-5.5); Total Protein, Blood 5.6 g/dL (6.4-8.2)
[2024-06-03 07:39] VITALS: BP 149/38
[2024-06-03] MEDS ORDERED: DiphenhydrAMINE HCL 25 MG Cap PO ONE (08:00)
[2024-06-03] MEDS ORDERED: Prochlorperazine Edisylate 10 mg Vial IV PRN (08:00)
[2024-06-03] MEDS ORDERED: Furosemide 10 MG / ML 2ML Vial IV SCH (09:00)
--- NOTE | 2024-06-03 12:16 | NUR ---
PATIENT WORKED WITH BOTH PT/OT, OOB FOR BREAKFAST., STILL VERY DROWSY, QUICKLY TO SLEEP AND LOUDLY SNORING, CALL LIGHT WITH IN REACH
[2024-06-03 15:59] VITALS: BP 145/45
[2024-06-03] MEDS ORDERED: Dronabinol 2.5 MG Cap PO SCH (16:30)
--- NOTE | 2024-06-03 18:22 | NUR ---
PATIENT WORKED WITH PT/OT TODAY, WAS OOB IN CHAIR FOR BREAKFAST, QUICKLY BACK TO SLEEP THROUGHOUT THE DAY, CONTINUED TO COMPLAIN OF NAUSEA, MEDICATED WITH ZOFRAN AND COMPAZINE. CALL LIGHT WITH IN REACH, NO ACUTE CHANGES, WILL RELAY TO PM RN
[2024-06-03 19:39] VITALS: BP 145/52
[2024-06-04 03:35] VITALS: BP 131/45
--- NOTE | 2024-06-04 04:07 | NUR ---
PT RESTING QUIETLY IN BED WITH EYES CLOSED. NO DISTRESS NOTED. FREQUENT C/O OF NAUSEA. MEDICATED PER DR ORDERS.
[2024-06-04 06:02] LABS: BASOPHILS ABSOLUTE AUTO 0.04 K/mm3 (0.00-0.23); BASOPHILS PERCENT AUTO 0 % (0-2); EOSINOPHILS ABSOLUTE AUTO 0.22 K/mm3 (0.00-0.68); EOSINOPHILS PERCENT AUTO 2 % (0-6); Hematocrit 31.6 % (33.0-51.0); Hemoglobin 10.3 g/dL (11.5-16.0); IMMATURE GRAN ABSOLUTE AUTO 0.04 K/mm3 (0.00-0.10); IMMATURE GRAN PERCENT AUTO 0 % (0-1); LYMPHOCYTES ABSOLUTE AUTO 2.43 K/mm3 (0.84-5.20); LYMPHOCYTES PERCENT AUTO 24 % (21-46); MONOCYTES ABSOLUTE AUTO 0.99 K/mm3 (0.16-1.47); MONOCYTES PERCENT AUTO 10 % (4-13); Mean Corpuscular HGB 28.4 pg (26.0-34.0); Mean Corpuscular HGB Conc 32.6 g/dL (31.5-36.5); Mean Corpuscular Volume 87 fL (80-100); Mean Platelet Volume 10.2 fL (9.1-12.4); NEUTROPHILS ABSOLUTE AUTO 6.45 K/mm3 (1.96-9.15); NEUTROPHILS PERCENT AUTO 63 % (41-73); Platelet Count 248 K/mm3 (150-400); RDW Coefficient Variation 14.3 % (11.7-14.2); RDW Standard Deviation 45.7 fL (35.1-46.3); Red Blood Cell Count 3.63 M/mm3 (3.80-5.20); White Blood Cell Count 10.17 K/mm3 (4.00-11.30)
[2024-06-04 06:36] LABS: Albumin, Blood 2.3 g/dL (3.4-5.0); Albumin/Globulin Ratio 0.8 (0.8-1.8); Bilirubin, Total 0.7 mg/dL (0.1-1.0); Bun/Creatinine Ratio 18.8 (12.0-20.0); Calcium, Blood 8.2 mg/dL (8.5-10.1); Creatinine, Blood 0.96 mg/dL (0.40-1.00); Globulin, Blood 2.9 g/dL (2.2-4.0); Total Protein, Blood 5.2 g/dL (6.4-8.2)
[2024-06-04 07:30] VITALS: BP 147/49
[2024-06-04] MEDS ORDERED: Scopolamine Hydrobromide Patch TOP PRN (14:30)
[2024-06-04 15:46] VITALS: BP 138/50
--- NOTE | 2024-06-04 16:12 | NUR ---
Spiritual Care Visit. Pt. is awake in bed and welcomed my visit. Pt. is pleasant but unsettled about the length of her hospital stay. Facilitated an update of her progress and plan of care. Pt. displayed evidence of awareness and engagement. Prayed with Pt. Pt. verbalized gratitude for the spiritual care visit.
[2024-06-04] MEDS ORDERED: Dronabinol 2.5 MG Cap PO SCH (16:30)
[2024-06-04] MEDS ORDERED: Insulin Glargine-Yfgn 100 Unit/mL 3 ML SYR SC SCH ×2 (18:00→21:00)
--- NOTE | 2024-06-04 18:42 | NUR ---
NO ACUTE CHANGES, STILL COMPLAINS OF NAUSEA, MEDICATED WITH ZOFRAN/COMPAZINE THROUGH OUT THE DAY, SCOPE PATCH TO RIGHT EAR, OOB FOR LUNCH, WORKED WITH PT/OT, SON TOM VISITED TODAY, ALERT AND OREINTED TO ALL, CALL LIGHT WITH IN REACH
[2024-06-04 19:08] VITALS: BP 152/64
[2024-06-05 02:48] VITALS: BP 158/49
--- NOTE | 2024-06-05 05:19 | NUR ---
pt resting quietly in bed at this time. pt found at times incontinent of stools with rounds. pt unaware of incontinence. pt c/o pain with repositiong. pt declined medications. resp even and unlabored. no distress noted.
[2024-06-05 05:42] LABS: BASOPHILS ABSOLUTE AUTO 0.03 K/mm3 (0.00-0.23); BASOPHILS PERCENT AUTO 0 % (0-2); EOSINOPHILS ABSOLUTE AUTO 0.28 K/mm3 (0.00-0.68); EOSINOPHILS PERCENT AUTO 3 % (0-6); Hematocrit 34.9 % (33.0-51.0); Hemoglobin 11.4 g/dL (11.5-16.0); IMMATURE GRAN ABSOLUTE AUTO 0.04 K/mm3 (0.00-0.10); IMMATURE GRAN PERCENT AUTO 0 % (0-1); LYMPHOCYTES PERCENT AUTO 17 % (21-46); MONOCYTES PERCENT AUTO 8 % (4-13); Mean Corpuscular HGB 28.5 pg (26.0-34.0); Mean Corpuscular HGB Conc 32.7 g/dL (31.5-36.5); Mean Corpuscular Volume 87 fL (80-100); Mean Platelet Volume 9.1 fL (9.1-12.4); NEUTROPHILS ABSOLUTE AUTO 7.84 K/mm3 (1.96-9.15); NEUTROPHILS PERCENT AUTO 71 % (41-73); Platelet Count 265 K/mm3 (150-400); RDW Coefficient Variation 14.2 % (11.7-14.2); RDW Standard Deviation 45.6 fL (35.1-46.3); White Blood Cell Count 10.99 K/mm3 (4.00-11.30)
[2024-06-05 06:06] LABS: Albumin, Blood 2.4 g/dL (3.4-5.0); Albumin/Globulin Ratio 0.8 (0.8-1.8); Bilirubin, Total 0.8 mg/dL (0.1-1.0); Bun/Creatinine Ratio 18.2 (12.0-20.0); Calcium, Blood 8.5 mg/dL (8.5-10.1); Creatinine, Blood 1.1 mg/dL (0.40-1.00); Total Protein, Blood 5.4 g/dL (6.4-8.2)
[2024-06-05 07:34] VITALS: BP 142/51
[2024-06-05 14:47] VITALS: BP 131/55
--- NOTE | 2024-06-05 18:26 | NUR ---
NO ACUTE CHANGES, NAUSEA IMPROVED, OOB IN CHAIR THE MAJORITY OF THE DAY, LEFT HAND/ARM BLISTERS HEALING AND WEEPING, PATIENT MORE ALERT AND INTERACTIVE TODAY. PICKARD TO GRAVITY, 100% SATS ON RA WHILE AWAKE. CALL LIGHT WITH IN REACH, WILL RELAY TO PM RN
[2024-06-05 19:06] VITALS: BP 144/51
--- NOTE | 2024-06-06 03:07 | NUR ---
DAIRY CLERK SUMMARY VSS. ALERT AND ORIENTED. CHEERFUL AFFECT AT SHIFT START. ON ROOM AIR UNTIL HS, THEN ON CPAP. ACCU CHECK WAS 170 AT HS, AND WAS 182 LATER. BED REST THIS SHIFT, ABLE TO REPOSITION SELF WITH ASSIST FOR COMFORT AND SKIN MAINTENANCE. INCONT AND CHANGED. HAS BEEN RESTING QUIETLY WITH FEW INTERRUPTIONS SINCE HS. CALL LIGHT IN REACH, RAILS UP X 2 AND BED IN LOW POSITION FOR SAFETY. WILL CONT TO MONITOR
[2024-06-06 04:16] VITALS: BP 165/49
[2024-06-06 05:40] LABS: BASOPHILS ABSOLUTE AUTO 0.05 K/mm3 (0.00-0.23); BASOPHILS PERCENT AUTO 1 % (0-2); EOSINOPHILS ABSOLUTE AUTO 0.39 K/mm3 (0.00-0.68); EOSINOPHILS PERCENT AUTO 4 % (0-6); Hematocrit 33.2 % (33.0-51.0); Hemoglobin 10.9 g/dL (11.5-16.0); IMMATURE GRAN ABSOLUTE AUTO 0.04 K/mm3 (0.00-0.10); IMMATURE GRAN PERCENT AUTO 0 % (0-1); LYMPHOCYTES ABSOLUTE AUTO 2.09 K/mm3 (0.84-5.20); LYMPHOCYTES PERCENT AUTO 22 % (21-46); MONOCYTES ABSOLUTE AUTO 0.71 K/mm3 (0.16-1.47); MONOCYTES PERCENT AUTO 7 % (4-13); Mean Corpuscular HGB 28.5 pg (26.0-34.0); Mean Corpuscular HGB Conc 32.8 g/dL (31.5-36.5); Mean Corpuscular Volume 87 fL (80-100); Mean Platelet Volume 10.2 fL (9.1-12.4); NEUTROPHILS ABSOLUTE AUTO 6.44 K/mm3 (1.96-9.15); NEUTROPHILS PERCENT AUTO 66 % (41-73); Platelet Count 228 K/mm3 (150-400); RDW Coefficient Variation 14.1 % (11.7-14.2); RDW Standard Deviation 44.9 fL (35.1-46.3); Red Blood Cell Count 3.83 M/mm3 (3.80-5.20); White Blood Cell Count 9.72 K/mm3 (4.00-11.30)
[2024-06-06 06:03] LABS: Albumin, Blood 2.3 g/dL (3.4-5.0); Albumin/Globulin Ratio 0.8 (0.8-1.8); Bilirubin, Total 0.6 mg/dL (0.1-1.0); Calcium, Blood 8.3 mg/dL (8.5-10.1); Creatinine, Blood 1.18 mg/dL (0.40-1.00); Globulin, Blood 2.9 g/dL (2.2-4.0); Potassium, Blood 3.8 mmol/L (3.5-5.5); Total Protein, Blood 5.2 g/dL (6.4-8.2)
[2024-06-06 07:20] VITALS: BP 154/56
[2024-06-06] MEDS ORDERED: LATA.005SO BOTHEYES (14:39)
[2024-06-06] MEDS ORDERED: METF500 PO (14:40)
[2024-06-06 15:07] VITALS: BP 148/65
--- NOTE | 2024-06-06 16:30 | NUR ---
DISCHARGE SUMMARY PT DC THIS SHIFT TO [facility] THIS SHIFT. PT PERSONAL BELONGINGS AND CPAP SENT WITH PT. PT LEFT VIA WHEELCHAIR AND TRANSORTATION SERVICE. SHARON WAS CALLED RE: PT CATH AND STATED TO LEAVE CATH IN PLACE. REPORT WAS CALLED TO [facility] RIVERA AND GIVEN TO TAB ABREU. PT CARLOS SANTOS WAS CALLED TO GIVE AN UPDATE BUT THERE WAS NO ASWER VM WAS LEFT.
== END 2024-06-06 16:12 | DRG 637 ==
LOC: ER 09:42 → ICUE 11:36 → MEDS 11:36 → ICUE 14:05 → MEDS 05-24 17:33
PROVIDERS: Emergency Medicine; Family Medicine; Internal Medicine; Student in an Organized Health Care Education/Training Program; ADMIT Internal Medicine
PROC: 0T9B70Z Drainage of Bladder with Drainage Device, Via Natural or Artificial Opening (ICD-10-PCS; principal; 2024-05-23)
PROC: 5A09357 Assistance with Respiratory Ventilation, Less than 24 Consecutive Hours, Continuous Positive Airway Pressure (ICD-10-PCS; 2024-05-23)
DX: E11.10 Type 2 diabetes mellitus with ketoacidosis without coma (principal); G93.41 Metabolic encephalopathy; N39.0 Urinary tract infection, site not specified; N17.9 Acute kidney failure, unspecified; R33.9 Retention of urine, unspecified; I12.9 Hypertensive chronic kidney disease with stage 1 through stage 4 chronic kidney disease, or unspecified chronic kidney disease; N18.30 Chronic kidney disease, stage 3 unspecified; I25.10 Atherosclerotic heart disease of native coronary artery without angina pectoris; E78.00 Pure hypercholesterolemia, unspecified; E11.22 Type 2 diabetes mellitus with diabetic chronic kidney disease; Z95.0 Presence of cardiac pacemaker; H35.30 Unspecified macular degeneration; Z90.49 Acquired absence of other specified parts of digestive tract; Z90.89 Acquired absence of other organs; Z87.440 Personal history of urinary (tract) infections; Z88.8 Allergy status to other drugs, medicaments and biological substances; Z88.5 Allergy status to narcotic agent; Z79.899 Other long term (current) drug therapy; Z79.4 Long term (current) use of insulin; Z79.82 Long term (current) use of aspirin; Z95.5 Presence of coronary angioplasty implant and graft; Z99.89 Dependence on other enabling machines and devices
CPT/HCPCS: 36415; 71046; 74177; 80048; 80053; 81001; 82010; 82803; 82947; 83690; 83735; 83880; 84100; 84145; 85025; 87086; 93005; 93010; 94760; 94762; 96360; 97110; 97112; 97116; 97161; 97165; 97530; 97535; 99285-25; A9270; C1751; J0360; J0612; J0696; J0780; J1650; J1815; J1940; J1956; J2405; J2470; J2765; J7030; J7042; J7050; P9047; Q0167; Q9967

== ENCOUNTER 2024-07-22 14:21 | Emergency (ER) | payer MEDICARE, OTHER ==
[~2024-07-22] VITALS: Ht 160 cm; Wt 108.9 kg
[~2024-07-22 14:21] MED LIST changes: +LATA.005SO BOTHEYES; +METF500 PO
[2024-07-22 15:33] LABS: BASOPHILS ABSOLUTE AUTO 0.05 K/mm3 (0.00-0.23); BASOPHILS PERCENT AUTO 0 % (0-2); EOSINOPHILS ABSOLUTE AUTO 0.43 K/mm3 (0.00-0.68); EOSINOPHILS PERCENT AUTO 4 % (0-6); Hematocrit 39.5 % (33.0-51.0); Hemoglobin 12.8 g/dL (11.5-16.0); IMMATURE GRAN ABSOLUTE AUTO 0.04 K/mm3 (0.00-0.10); IMMATURE GRAN PERCENT AUTO 0 % (0-1); LYMPHOCYTES PERCENT AUTO 21 % (21-46); MONOCYTES ABSOLUTE AUTO 0.76 K/mm3 (0.16-1.47); MONOCYTES PERCENT AUTO 7 % (4-13); Mean Corpuscular HGB 29.3 pg (26.0-34.0); Mean Corpuscular HGB Conc 32.4 g/dL (31.5-36.5); Mean Corpuscular Volume 90 fL (80-100); Mean Platelet Volume 9.8 fL (9.1-12.4); NEUTROPHILS ABSOLUTE AUTO 7.58 K/mm3 (1.96-9.15); NEUTROPHILS PERCENT AUTO 67 % (41-73); Platelet Count 298 K/mm3 (150-400); RDW Standard Deviation 45.6 fL (35.1-46.3); Red Blood Cell Count 4.37 M/mm3 (3.80-5.20); White Blood Cell Count 11.26 K/mm3 (4.00-11.30)
[2024-07-22 16:04] LABS: Albumin/Globulin Ratio 0.8 (0.8-1.8); Bilirubin, Total 0.6 mg/dL (0.1-1.0); Bun/Creatinine Ratio 19.7 (12.0-20.0); Creatinine, Blood 1.17 mg/dL (0.40-1.00); Globulin, Blood 3.9 g/dL (2.2-4.0); Potassium, Blood 3.6 mmol/L (3.5-5.5); Total Protein, Blood 6.9 g/dL (6.4-8.2)
[2024-07-22 18:19] LABS: Source, Urine Clean Catch
[2024-07-22 18:21] LABS: Bilirubin, Urine Neg (Neg); Blood, Urine 3+ (Neg); Glucose Qualitative, Urine Neg (Neg); Ketones, Urine 2+ (Neg); Leukocyte Esterase, Urine 3+ (Neg); Nitrite, Urine Neg (Neg); Protein, Urine 2+ (Neg); Specific Gravity, Urine 1.015 (1.003-1.022); Urobilinogen, Urine NORM (Normal)
[2024-07-22] MEDS ORDERED: MOUNJARO12.5 MG/0. SC (18:26)
[2024-07-22 18:33] LABS: Color, Urine Yellow (P-Yellow)
[2024-07-22 18:34] LABS: Appearance, Urine Hazy (Clear); Bacteria Mod /hpf; Squamous Epithelial Cells Few /hpf (Few); White Blood Cells, Urine TNTC /hpf (0-5)
[2024-07-22 18:35] LABS: Renal Epithelial Rare /hpf (0-Rare)
[2024-07-22 18:42] VITALS: BP 175/57
[2024-07-22] MEDS ORDERED: CEPH500 PO (18:59)
[2024-07-22] MEDS ORDERED: Cephalexin Monohydrate 500 MG Cap PO ONE (19:00)
[2024-07-28] MEDS ORDERED: DOXY100 PO (04:35)
[2024-07-28] MEDS ORDERED: AMOCLA875 PO (04:35)
[2024-07-29] MEDS ORDERED: CEPH500 PO (23:35)
== END 2024-07-22 19:13 | disposition home or self-care (01) ==
LOC: ER 14:21
PROVIDERS: Physician Assistant; Student in an Organized Health Care Education/Training Program
DX: N39.0 Urinary tract infection, site not specified (principal); I12.9 Hypertensive chronic kidney disease with stage 1 through stage 4 chronic kidney disease, or unspecified chronic kidney disease; E11.22 Type 2 diabetes mellitus with diabetic chronic kidney disease; N18.30 Chronic kidney disease, stage 3 unspecified; I25.10 Atherosclerotic heart disease of native coronary artery without angina pectoris; E78.5 Hyperlipidemia, unspecified; G47.33 Obstructive sleep apnea (adult) (pediatric); Z88.8 Allergy status to other drugs, medicaments and biological substances; Z88.5 Allergy status to narcotic agent; Z79.4 Long term (current) use of insulin; Z79.82 Long term (current) use of aspirin; Z79.84 Long term (current) use of oral hypoglycemic drugs; Z79.899 Other long term (current) drug therapy
CPT/HCPCS: 74177; 80053; 81001; 83690; 85025; 93005; 93010; 99284-25; A9270; Q9967

== ENCOUNTER 2024-10-19 14:42 | Emergency (ER) | payer MEDICARE, OTHER ==
[~2024-10-19] VITALS: Ht 160 cm; Wt 120.2 kg
[~2024-10-19 14:42] MED LIST changes: +AMOCLA875 PO; +Acetaminophen650 M1 PO; +LACT PO; +MOUNJARO12.5 MG/0. SC
[2024-10-19 15:27] VITALS: BP 168/78
[2024-10-19 18:19] LABS: Source, Urine Clean Catch
[2024-10-19 18:24] LABS: Appearance, Urine Hazy (Clear); Bilirubin, Urine Neg (Neg); Blood, Urine 4+ (Neg); Color, Urine Yellow (P-Yellow); Glucose Qualitative, Urine 4+ (Neg); Ketones, Urine Neg (Neg); Leukocyte Esterase, Urine 3+ (Neg); Nitrite, Urine Neg (Neg); Protein, Urine 2+ (Neg); Urobilinogen, Urine NORM (Normal)
[2024-10-19 18:30] LABS: Red Blood Cells, Urine TNTC /hpf (0-2); White Blood Cells, Urine TNTC /hpf (0-5)
[2024-10-19 18:32] LABS: Bacteria Mod /hpf; Squamous Epithelial Cells Rare /hpf (Few); Yeast/Fungi Urine Few /hpf
[2024-10-19] MEDS ORDERED: Cephalexin Monohydrate 500 MG Cap PO ONE (18:35)
[2024-10-19] MEDS ORDERED: CEPH500 PO (18:36)
== END 2024-10-19 19:07 | disposition home or self-care (01) ==
LOC: ER 14:42
PROVIDERS: Physician Assistant
DX: N39.0 Urinary tract infection, site not specified (principal); M54.50 Low back pain, unspecified; M54.6 Pain in thoracic spine; Z95.5 Presence of coronary angioplasty implant and graft; Z95.0 Presence of cardiac pacemaker; Z88.8 Allergy status to other drugs, medicaments and biological substances; Z88.5 Allergy status to narcotic agent; Z79.4 Long term (current) use of insulin; Z79.85 Long-term (current) use of injectable non-insulin antidiabetic drugs; Z79.82 Long term (current) use of aspirin; Z79.899 Other long term (current) drug therapy
CPT/HCPCS: 72100; 81001; 87086; 99283-25; A9270

== ENCOUNTER → 2024-12-09 | Outpatient (CLI) | payer MEDICARE, OTHER ==
[2024-12-09 16:12] LABS: Source, Urine Voided
[2024-12-09 17:07] LABS: Appearance, Urine Cloudy (Clear); Bilirubin, Urine Neg (Neg); Blood, Urine 4+ (Neg); Glucose Qualitative, Urine 2+ (Neg); Ketones, Urine Neg (Neg); Leukocyte Esterase, Urine 3+ (Neg); Nitrite, Urine Neg (Neg); Protein, Urine 2+ (Neg); Specific Gravity, Urine 1.015 (1.003-1.022); Urobilinogen, Urine NORM (Normal)
[2024-12-09 17:20] LABS: Color, Urine Pale Yellow (P-Yellow)
[2024-12-09 17:21] LABS: White Blood Cells, Urine TNTC /hpf (0-5); Yeast/Fungi Urine Rare /hpf
[2024-12-09 17:22] LABS: Bacteria Mod /hpf; Squamous Epithelial Cells Rare /hpf (Few)
== END ==
LOC: LAB 16:10 → LAB SHORT 16:10
PROVIDERS: Internal Medicine
DX: N39.0 Urinary tract infection, site not specified (principal)
CPT/HCPCS: 81001; 87086

== ENCOUNTER → 2024-12-16 | Outpatient (CLI) | payer MEDICARE, OTHER ==
[~2024-12-16] MED LIST changes: +ACET500 PO
[2024-12-16 17:38] LABS: Candida Group, PCR NOT DETECTED (NOT DETECT)
[2024-12-16 18:19] LABS: Bacterial Vaginosis PCR Positive (NEGATIVE); Candida glabrata-krusei, PCR DETECTED (NOT DETECT)
== END ==
LOC: LAB 15:42 → LAB SHORT 15:42
PROVIDERS: Internal Medicine
DX: R35.0 Frequency of micturition (principal); N76.0 Acute vaginitis
CPT/HCPCS: 81515; 87086

== ENCOUNTER 2024-12-18 09:51 | Emergency (ER) | payer MEDICARE, OTHER ==
[~2024-12-18] VITALS: Ht 160 cm; Wt 127.0 kg
[~2024-12-18 09:51] MED LIST changes: -ACET500 PO
[2024-12-18] MEDS ORDERED: Ketorolac Tromethamine 15mg Vial IV ONE (10:00)
[2024-12-18] MEDS ORDERED: ACET500 PO (11:19)
[2024-12-18 12:07] LABS: Source, Urine Clean Catch
[2024-12-18 12:26] LABS: Appearance, Urine Hazy (Clear); Bilirubin, Urine Neg (Neg); Blood, Urine 4+ (Neg); Glucose Qualitative, Urine 1+ (Neg); Ketones, Urine Neg (Neg); Leukocyte Esterase, Urine 3+ (Neg); Nitrite, Urine Neg (Neg); Protein, Urine 2+ (Neg); Urobilinogen, Urine NORM (Normal)
[2024-12-18 13:19] LABS: Color, Urine Pale Yellow (P-Yellow); White Blood Cells, Urine TNTC /hpf (0-5)
[2024-12-18 13:20] LABS: Bacteria Few /hpf; Hyaline Casts 0-2 /lpf (0-2); Squamous Epithelial Cells Few /hpf (Few); Yeast/Fungi Urine Few /hpf
[2024-12-18] MEDS ORDERED: CefTRIAXone Sodium 1,000 MG in NS 100 ML IV ONE (13:35)
[2024-12-18 14:15] LABS: BASOPHILS ABSOLUTE AUTO 0.05 K/mm3 (0.00-0.23); BASOPHILS PERCENT AUTO 1 % (0-2); EOSINOPHILS PERCENT AUTO 2 % (0-6); Hematocrit 40.8 % (33.0-51.0); Hemoglobin 13.4 g/dL (11.5-16.0); IMMATURE GRAN ABSOLUTE AUTO 0.05 K/mm3 (0.00-0.10); IMMATURE GRAN PERCENT AUTO 1 % (0-1); LYMPHOCYTES ABSOLUTE AUTO 1.52 K/mm3 (0.84-5.20); LYMPHOCYTES PERCENT AUTO 25 % (21-46); MONOCYTES ABSOLUTE AUTO 0.65 K/mm3 (0.16-1.47); MONOCYTES PERCENT AUTO 11 % (4-13); Mean Corpuscular HGB 28.7 pg (26.0-34.0); Mean Corpuscular HGB Conc 32.8 g/dL (31.5-36.5); Mean Corpuscular Volume 87 fL (80-100); Mean Platelet Volume 9.7 fL (9.1-12.4); NEUTROPHILS ABSOLUTE AUTO 3.83 K/mm3 (1.96-9.15); NEUTROPHILS PERCENT AUTO 62 % (41-73); Platelet Count 225 K/mm3 (150-400); RDW Coefficient Variation 14.9 % (11.7-14.2); RDW Standard Deviation 47.7 fL (35.1-46.3); Red Blood Cell Count 4.67 M/mm3 (3.80-5.20)
[2024-12-18 14:32] LABS: Bun/Creatinine Ratio 22.9 (12.0-20.0); Calcium, Blood 8.7 mg/dL (8.5-10.1); Creatinine, Blood 0.92 mg/dL (0.40-1.00); Magnesium, Blood 1.8 mg/dL (1.6-2.4)
[2024-12-18 16:00] VITALS: BP 167/53
[2024-12-18] MEDS ORDERED: CEPH500 PO (16:20)
== END 2024-12-18 17:37 | disposition home or self-care (01) ==
LOC: ER 09:51
PROVIDERS: Emergency Medicine
DX: M54.50 Low back pain, unspecified (principal); N39.0 Urinary tract infection, site not specified; W18.30XA Fall on same level, unspecified, initial encounter; E78.5 Hyperlipidemia, unspecified; I12.9 Hypertensive chronic kidney disease with stage 1 through stage 4 chronic kidney disease, or unspecified chronic kidney disease; E11.22 Type 2 diabetes mellitus with diabetic chronic kidney disease; N18.30 Chronic kidney disease, stage 3 unspecified; Z79.4 Long term (current) use of insulin; Z79.899 Other long term (current) drug therapy; Z79.82 Long term (current) use of aspirin; Z79.2 Long term (current) use of antibiotics; Z79.85 Long-term (current) use of injectable non-insulin antidiabetic drugs; Z79.3 Long term (current) use of hormonal contraceptives
CPT/HCPCS: 51702; 71045; 72131; 80048; 81001; 83735; 83880; 84484; 85025; 87086; 87106; 93005; 93010; 96374-59; 96375-59; 99284-25; J0696; J1885; P9612

== ENCOUNTER 2025-01-18 10:54 | Emergency (ER) | payer MEDICARE, OTHER ==
[~2025-01-18] VITALS: Ht 160 cm; Wt 122.5 kg
[2025-01-18 15:01] VITALS: BP 141/39
== END 2025-01-18 15:13 | disposition home or self-care (01) ==
LOC: ER 10:54
DX: R05.3 Chronic cough (principal); D64.9 Anemia, unspecified; E11.22 Type 2 diabetes mellitus with diabetic chronic kidney disease; N18.31 Chronic kidney disease, stage 3a; I12.9 Hypertensive chronic kidney disease with stage 1 through stage 4 chronic kidney disease, or unspecified chronic kidney disease; I25.10 Atherosclerotic heart disease of native coronary artery without angina pectoris; E11.65 Type 2 diabetes mellitus with hyperglycemia; Z88.8 Allergy status to other drugs, medicaments and biological substances; Z79.4 Long term (current) use of insulin; Z79.82 Long term (current) use of aspirin; Z79.899 Other long term (current) drug therapy; Z95.0 Presence of cardiac pacemaker

== ENCOUNTER 2025-02-03 19:41 | Emergency (ER) | payer MEDICARE, OTHER ==
[~2025-02-03] VITALS: Ht 160 cm; Wt 127.0 kg
[~2025-02-03 19:41] MED LIST changes: +ACET500 PO
[2025-02-03 20:13] VITALS: BP 118/86
[2025-02-03] MEDS ORDERED: Ketorolac Tromethamine 15mg Vial IV ONE (22:45)
[2025-02-03] MEDS ORDERED: DiphenhydrAMINE HCl 50 MG/ML 1ML Vial IV ONE (22:50)
[2025-02-03] MEDS ORDERED: Lidocaine 4% 1 Patch TOP ONE (22:50)
[2025-02-03] MEDS ORDERED: ASPERFLEX1 EACH TOP (23:01)
[2025-02-03] MEDS ORDERED: Robaxin750 MG PO (23:01)
== END 2025-02-03 23:40 | disposition home or self-care (01) ==
LOC: ER 19:41
DX: M54.2 Cervicalgia (principal); R51.9 Headache, unspecified; M62.838 Other muscle spasm; Z88.8 Allergy status to other drugs, medicaments and biological substances; Z88.5 Allergy status to narcotic agent; Z79.4 Long term (current) use of insulin; Z79.82 Long term (current) use of aspirin; Z79.899 Other long term (current) drug therapy
CPT/HCPCS: 70450; 82947; 96374; 96375; 99284-25; A9270; J1200; J1885

== ENCOUNTER 2025-03-23 13:46 | Emergency (ER) | payer OTHER, MEDICARE ==
[~2025-03-23] VITALS: Ht 160 cm; Wt 128.8 kg
[~2025-03-23 13:46] MED LIST changes: +ASPERFLEX1 EACH TOP; +Robaxin750 MG PO
[2025-03-23 13:51] VITALS: BP 180/68
== END 2025-03-23 16:36 | disposition home or self-care (01) ==
LOC: ER 13:46
DX: S01.01XA Laceration without foreign body of scalp, initial encounter (principal); S16.1XXA Strain of muscle, fascia and tendon at neck level, initial encounter; S40.011A Contusion of right shoulder, initial encounter; W01.0XXA Fall on same level from slipping, tripping and stumbling without subsequent striking against object, initial encounter; I48.91 Unspecified atrial fibrillation; Z79.01 Long term (current) use of anticoagulants
CPT/HCPCS: 12013; 70450; 72125; 99285-25

== ENCOUNTER 2025-03-29 19:07 | Emergency (ER) | payer MEDICARE, OTHER ==
[~2025-03-29] VITALS: Ht 160 cm; Wt 127.0 kg
[2025-03-29 19:36] VITALS: BP 183/62
[2025-03-29 20:04] LABS: BASOPHILS ABSOLUTE AUTO 0.04 K/mm3 (0.00-0.23); BASOPHILS PERCENT AUTO 1 % (0-2); EOSINOPHILS ABSOLUTE AUTO 0.46 K/mm3 (0.00-0.68); EOSINOPHILS PERCENT AUTO 6 % (0-6); Hematocrit 28.8 % (33.0-51.0); Hemoglobin 9.1 g/dL (11.5-16.0); IMMATURE GRAN ABSOLUTE AUTO 0.02 K/mm3 (0.00-0.10); IMMATURE GRAN PERCENT AUTO 0 % (0-1); LYMPHOCYTES ABSOLUTE AUTO 1.86 K/mm3 (0.84-5.20); LYMPHOCYTES PERCENT AUTO 23 % (21-46); MONOCYTES ABSOLUTE AUTO 0.55 K/mm3 (0.16-1.47); MONOCYTES PERCENT AUTO 7 % (4-13); Mean Corpuscular HGB Conc 31.6 g/dL (31.5-36.5); Mean Corpuscular Volume 88 fL (80-100); NEUTROPHILS ABSOLUTE AUTO 5.05 K/mm3 (1.96-9.15); NEUTROPHILS PERCENT AUTO 63 % (41-73); NRBC ABSOLUTE 0.00 K/mm3 (0.00-0.02); NRBC Auto 0.0 /100 WBC (0.0-0.2); Platelet Count 299 K/mm3 (150-400); RDW Coefficient Variation 15.1 % (11.7-14.2); RDW Standard Deviation 48.6 fL (35.1-46.3)
[2025-03-29] MEDS ORDERED: NS 1,000 ML IV SCH (20:15)
[2025-03-29 20:37] LABS: Alanine Aminotransfer (ALT/SGP 14.0 U/L (12-78); Albumin, Blood 2.8 g/dL (3.4-5.0); Albumin/Globulin Ratio 0.7 (0.8-1.8); Anion Gap 7.0 mmol/L (3-11); Aspartate Aminotrans (AST/SGOT 10.0 U/L (12-37); Bilirubin, Total 0.4 mg/dL (0.1-1.0); Blood Urea Nitrogen 41.0 mg/dL (8-24); CO2, Blood 32.0 mmol/L (21-32); Calcium, Blood 8.6 mg/dL (8.5-10.1); Chloride, Blood 97.0 mmol/L (98-108); Creatinine, Blood 1.24 mg/dL (0.40-1.00); Globulin, Blood 4.0 g/dL (2.2-4.0); Glucose, Blood 462.0 mg/dL (70-99); Potassium, Blood 5.3 mmol/L (3.5-5.5); Sodium, Blood 131.0 mmol/L (136-145); Total Protein, Blood 6.8 g/dL (6.4-8.2)
== END 2025-03-29 22:22 | disposition home or self-care (01) ==
LOC: ER 19:07
PROVIDERS: Student in an Organized Health Care Education/Training Program
DX: E11.65 Type 2 diabetes mellitus with hyperglycemia (principal); E78.5 Hyperlipidemia, unspecified; E11.22 Type 2 diabetes mellitus with diabetic chronic kidney disease; I12.9 Hypertensive chronic kidney disease with stage 1 through stage 4 chronic kidney disease, or unspecified chronic kidney disease; N18.30 Chronic kidney disease, stage 3 unspecified; G47.33 Obstructive sleep apnea (adult) (pediatric); Z79.82 Long term (current) use of aspirin; Z79.4 Long term (current) use of insulin; Z79.899 Other long term (current) drug therapy; Z88.5 Allergy status to narcotic agent; Z88.8 Allergy status to other drugs, medicaments and biological substances
CPT/HCPCS: 80053; 82010; 82947; 85025; 96360; 99284-25; J7030

== ENCOUNTER 2025-04-04 07:39 | Emergency (ER) | payer MEDICARE, OTHER ==
[~2025-04-04] VITALS: Ht 160 cm; Wt 127.0 kg
[2025-04-04 09:47] VITALS: BP 119/49
== END 2025-04-04 10:26 | disposition home or self-care (01) ==
LOC: ER 07:39
DX: S09.90XA Unspecified injury of head, initial encounter (principal); E11.22 Type 2 diabetes mellitus with diabetic chronic kidney disease; I12.9 Hypertensive chronic kidney disease with stage 1 through stage 4 chronic kidney disease, or unspecified chronic kidney disease; N18.30 Chronic kidney disease, stage 3 unspecified; E78.5 Hyperlipidemia, unspecified; Z79.01 Long term (current) use of anticoagulants; Z79.899 Other long term (current) drug therapy; Z79.4 Long term (current) use of insulin; Z88.8 Allergy status to other drugs, medicaments and biological substances; Z88.5 Allergy status to narcotic agent
CPT/HCPCS: 70450; 99284-25

== ENCOUNTER → 2025-05-07 | Outpatient (CLI) | payer MEDICARE, OTHER ==
[2025-05-07 10:21] LABS: Source, Urine Foley catheter
[2025-05-07 11:46] LABS: Bilirubin, Urine Neg (Neg); Color, Urine Yellow (P-Yellow); Glucose Qualitative, Urine 2+ (Neg); Ketones, Urine Neg (Neg); Leukocyte Esterase, Urine 3+ (Neg); Protein, Urine 3+ (Neg); Specific Gravity, Urine 1.025 (1.003-1.022); Urobilinogen, Urine NORM (Normal)
[2025-05-07 11:57] LABS: White Blood Cells, Urine 50-100 /hpf (0-5)
== END ==
LOC: LAB 09:00 → LAB SHORT 09:00
PROVIDERS: Internal Medicine
DX: N39.0 Urinary tract infection, site not specified (principal)
CPT/HCPCS: 81001; 87077; 87086; 87186

== ENCOUNTER → 2025-06-16 | Outpatient (CLI) | payer MEDICARE, OTHER ==
[2025-06-16 14:47] LABS: BASOPHILS ABSOLUTE AUTO 0.01 K/mm3 (0.00-0.23); BASOPHILS PERCENT AUTO 0 % (0-2); EOSINOPHILS ABSOLUTE AUTO 0.15 K/mm3 (0.00-0.68); EOSINOPHILS PERCENT AUTO 2 % (0-6); Hematocrit 33.3 % (33.0-51.0); Hemoglobin 10.8 g/dL (11.5-16.0); IMMATURE GRAN ABSOLUTE AUTO 0.04 K/mm3 (0.00-0.10); IMMATURE GRAN PERCENT AUTO 0 % (0-1); LYMPHOCYTES ABSOLUTE AUTO 1.67 K/mm3 (0.84-5.20); LYMPHOCYTES PERCENT AUTO 18 % (21-46); MONOCYTES ABSOLUTE AUTO 0.62 K/mm3 (0.16-1.47); MONOCYTES PERCENT AUTO 7 % (4-13); Mean Corpuscular HGB Conc 32.4 g/dL (31.5-36.5); Mean Corpuscular Volume 86 fL (80-100); NEUTROPHILS ABSOLUTE AUTO 6.63 K/mm3 (1.96-9.15); NEUTROPHILS PERCENT AUTO 73 % (41-73); NRBC ABSOLUTE 0.00 K/mm3 (0.00-0.02); NRBC Auto 0.0 /100 WBC (0.0-0.2); Platelet Count 284 K/mm3 (150-400); RDW Coefficient Variation 14.5 % (11.7-14.2); RDW Standard Deviation 45.1 fL (35.1-46.3)
[2025-06-16 14:57] LABS: Alanine Aminotransfer (ALT/SGP 16.0 U/L (12-78); Albumin, Blood 3.1 g/dL (3.4-5.0); Albumin/Globulin Ratio 0.8 (0.8-1.8); Anion Gap 14.0 mmol/L (3-11); Aspartate Aminotrans (AST/SGOT 17.0 U/L (12-37); Bilirubin, Total 0.8 mg/dL (0.1-1.0); Blood Urea Nitrogen 41.0 mg/dL (8-24); CO2, Blood 27.0 mmol/L (21-32); Calcium, Blood 9.0 mg/dL (8.5-10.1); Chloride, Blood 96.0 mmol/L (98-108); Creatinine, Blood 1.33 mg/dL (0.40-1.00); Globulin, Blood 3.9 g/dL (2.2-4.0); Glucose, Blood 161.0 mg/dL (70-99); Potassium, Blood 4.2 mmol/L (3.5-5.5); Sodium, Blood 133.0 mmol/L (136-145); Total Protein, Blood 7.0 g/dL (6.4-8.2)
== END | disposition home or self-care (01) ==
LOC: LAB SHORT 14:35 → LAB 14:35
PROVIDERS: Physician Assistant
DX: R19.7 Diarrhea, unspecified (principal)
CPT/HCPCS: 80053; 85025

== ENCOUNTER 2025-08-08 12:24 | Emergency (ER) | payer MEDICARE ==
[~2025-08-08] VITALS: Ht 160 cm; Wt 127.0 kg
[2025-08-08 13:45] VITALS: BP 164/59
== END 2025-08-08 14:38 | disposition home or self-care (01) ==
LOC: ER 12:24
DX: M25.512 Pain in left shoulder (principal); M25.562 Pain in left knee; M19.012 Primary osteoarthritis, left shoulder; M17.12 Unilateral primary osteoarthritis, left knee; E11.22 Type 2 diabetes mellitus with diabetic chronic kidney disease; I12.9 Hypertensive chronic kidney disease with stage 1 through stage 4 chronic kidney disease, or unspecified chronic kidney disease; N18.30 Chronic kidney disease, stage 3 unspecified; I25.10 Atherosclerotic heart disease of native coronary artery without angina pectoris; E78.5 Hyperlipidemia, unspecified; G47.33 Obstructive sleep apnea (adult) (pediatric); Z91.81 History of falling; Z95.5 Presence of coronary angioplasty implant and graft; Z95.0 Presence of cardiac pacemaker; Z88.5 Allergy status to narcotic agent; Z88.8 Allergy status to other drugs, medicaments and biological substances; Z79.4 Long term (current) use of insulin; Z79.82 Long term (current) use of aspirin; Z79.85 Long-term (current) use of injectable non-insulin antidiabetic drugs; Z79.899 Other long term (current) drug therapy
CPT/HCPCS: 73030; 73562-LT; 99284-25

== ENCOUNTER → 2025-09-15 | Outpatient (CLI) | payer MEDICARE ==
[~2025-09-15] MED LIST changes: +ALMACONE SUSPE355 ML PO; +DULCOLAX400 MG/5 M PO; +ELIQUIS5 M2 PO; -ESCI20 PO; +FURO80 PO; +GABA100 PO; +LOPERAMIDE1 MG/7.10 PO; +MOUNJARO5 MG/0.5 M SC; +NYSTOP15 GM TOP; +POTCHL20ER PO
[2025-09-15 12:07] LABS: BASOPHILS ABSOLUTE AUTO 0.06 K/mm3 (0.00-0.23); BASOPHILS PERCENT AUTO 1 % (0-2); EOSINOPHILS ABSOLUTE AUTO 0.45 K/mm3 (0.00-0.68); EOSINOPHILS PERCENT AUTO 5 % (0-6); Hematocrit 29.3 % (33.0-51.0); Hemoglobin 9.1 g/dL (11.5-16.0); IMMATURE GRAN ABSOLUTE AUTO 0.04 K/mm3 (0.00-0.10); IMMATURE GRAN PERCENT AUTO 0 % (0-1); LYMPHOCYTES ABSOLUTE AUTO 1.83 K/mm3 (0.84-5.20); LYMPHOCYTES PERCENT AUTO 20 % (21-46); MONOCYTES ABSOLUTE AUTO 0.70 K/mm3 (0.16-1.47); MONOCYTES PERCENT AUTO 8 % (4-13); Mean Corpuscular HGB Conc 31.1 g/dL (31.5-36.5); Mean Corpuscular Volume 88 fL (80-100); NEUTROPHILS ABSOLUTE AUTO 6.03 K/mm3 (1.96-9.15); NEUTROPHILS PERCENT AUTO 66 % (41-73); NRBC ABSOLUTE 0.00 K/mm3 (0.00-0.02); NRBC Auto 0.0 /100 WBC (0.0-0.2); Platelet Count 312 K/mm3 (150-400); RDW Coefficient Variation 15.2 % (11.7-14.2); RDW Standard Deviation 49.1 fL (35.1-46.3)
[2025-09-15 12:20] LABS: Alanine Aminotransfer (ALT/SGP 14.0 U/L (12-78); Albumin, Blood 2.7 g/dL (3.4-5.0); Albumin/Globulin Ratio 0.6 (0.8-1.8); Anion Gap 10.0 mmol/L (3-11); Aspartate Aminotrans (AST/SGOT 11.0 U/L (12-37); Bilirubin, Total 0.4 mg/dL (0.1-1.0); Blood Urea Nitrogen 35.0 mg/dL (8-24); CO2, Blood 31.0 mmol/L (21-32); Calcium, Blood 9.0 mg/dL (8.5-10.1); Chloride, Blood 102.0 mmol/L (98-108); Creatinine, Blood 1.28 mg/dL (0.40-1.00); Globulin, Blood 4.4 g/dL (2.2-4.0); Glucose, Blood 179.0 mg/dL (70-99); Potassium, Blood 4.4 mmol/L (3.5-5.5); Sodium, Blood 139.0 mmol/L (136-145); Total Protein, Blood 7.1 g/dL (6.4-8.2)
== END | disposition home or self-care (01) ==
LOC: LAB SHORT 12:02 → LAB 12:02
PROVIDERS: Chiropractor
DX: R06.00 Dyspnea, unspecified (principal); R60.0 Localized edema
CPT/HCPCS: 80053; 83880; 84484; 85025